=== PATIENT | male | born 1985 | race Caucasian/White ===

== ENCOUNTER 2020-06-23 07:39 | Outpatient (REF) | payer MEDICAID, SELFPAY | END 2020-06-23 07:40 | disposition home or self-care (01) | LOC: HO.LAB 07:39 | PROVIDERS: Visit Provider Internal Medicine | DX: Z20.822 Contact with and (suspected) exposure to COVID-19 (principal) | CPT/HCPCS: 36415; C9803; U0003; U0005 ==

== ENCOUNTER 2020-08-09 07:43 | Outpatient (REF) | payer MEDICAID, SELFPAY | END 2020-08-09 07:44 | disposition home or self-care (01) | LOC: HO.LAB 07:43 | PROVIDERS: Visit Provider Internal Medicine | DX: Z20.822 Contact with and (suspected) exposure to COVID-19 (principal) | CPT/HCPCS: C9803; U0003; U0005 ==

== ENCOUNTER 2020-08-14 14:10 | Emergency (ER) | payer MEDICAID, SELFPAY ==
[2020-08-14 14:17] VITALS: BP 140/84; PULSE 111; RESP 18; TEMP 36.8; O2SAT 98; BMI 31.3
[2020-08-14 16:28] LABS: IDNOW Serial# 08D9AD1C
[2020-08-14 16:29] LABS: COVID-19 Test Negative (Negative)
[2020-08-14 17:14] VITALS: PULSE 72; O2SAT 97
--- NOTE | 2020-08-14 17:16 | ED.GENADULT ---
HPI - General Adult General Chief complaint: Upper Respiratory Symptoms Stated complaint: flu like Time Seen by Provider: 08/14/20 16:00 Source: patient Mode of arrival: ambulatory Limitations: no limitations History of Present Illness HPI narrative: Patient presents to ED for nasal congestion, body aches, and slight headache for couple of days. Patient states his son recently tested positive for COVID-19. Patient denies any coughing, chest pain, shortness of breath, photophobia, neck stiffness, fever, or chills. Related Data Allergies Allergy/AdvReac Type Severity Reaction Status Date / Time No Known Allergies Allergy Unverified 12/31/19 18:57 [No Known Allergies*] Review of Systems Review of Systems: Yes all other systems are reviewed and are negative Constitutional: Constitutional: Reports as per HPI, Reports no additional constitutional complaints, Reports body ache(s) and Reports headache(s) (Slight) Eyes: Eyes: Reports as per HPI and Reports no additional eye complaints ENT: Reports system reviewed and no additional complaints, except as documented, Reports as per HPI, Reports headache(s) (Slight) and Reports nasal congestion Cardiovascular: Cardiovascular: Reports as per HPI and Reports no additional cardiovascular complaints Respiratory: Respiratory: Reports as per HPI and Reports no additional respiratory complaints Gastrointestinal: Gastrointestinal: Reports as per HPI and Reports no additional gastrointestinal complaints Genitourinary: Genitourinary: Reports no additional male genitourinary complaints and Reports as per HPI Musculoskeletal: Musculoskeletal: Reports no additional musculoskeletal complaints and Reports as per HPI Neurologic: Reports system reviewed and no additional complaints, except as documented, Reports as per HPI and Reports headache(s) (Slight) Psychiatric: Psychiatric: Reports no additional psychiatric complaints and Reports as per HPI REPLACED BY [facility] Social History Social History Advance Directives: No Advance Directives Information Provided: No Physical Exam Vital Signs: Vital Signs: Last Vital Signs Temp 98.2 F 08/14/20 14:17 Pulse 72 08/14/20 17:14 Resp 18 08/14/20 14:17 BP 140/84 H 08/14/20 14:17 Pulse Ox 97 08/14/20 17:14 Body Mass Index 31.3 Const: General: cooperative, healthy appearing, comfortable, no acute distress, well developed, alert, awake and Physically active Orientation/consciousness: patient oriented x3 HENMT: Head: Yes normal to inspection and Yes No palpable skull fracture present Eyes: General: appearance normal, both eyes and all related structures Neck: Neck: Yes normal visual inspection, Yes full ROM, Yes no lymphadenopathy, Yes no meningeal signs, Yes trachea midline, Yes supple and No tender Chest: Chest palpation & inspection: normal inspection of the chest and normal palpation of entire chest wall Resp: Effort & Inspection: normal respiratory effort and able to speak in complete sentences Auscultation: clear to auscultation bilaterally Cardio: Jugular venous distension: no JVD Heart sounds: S1 normal heart sound present and S2 normal heart sound present GI: Inspection: Yes normal to inspection Palpation (GI): Soft to palpation, not firm, nontender, no guarding and not rigid : General: No CVA tenderness and Yes no CVA tenderness Back/Spine/Pelvis: Back: no CVA tenderness, No CVA tenderness and No back tenderness Skin: General skin exam: no rashes or lesions noted and elasticity normal Neuro: General: patient oriented x3, no meningeal signs and CN's II-XI intact bilaterally Cranial nerves: Yes CN's II-XII intact bilaterally Extrem: General: Yes normal to inspection and Yes full ROM Psych: Appearance: grossly normal, well kempt and not disheveled Course Course Course Narrative: Will have SARS COVID vaccine sent. History physical exam indicate viral syndrome. No labs or other medical intervention indicated. Reevaluation(s) Reevaluation #1: Rapid COVID swab negative. SARs COVID results still pending. Patient informed if his COVID swab comes back negative that does not mean he does not have COVID-19 virus. Patient informed of false negatives. Patient states if he still having symptoms or worsen he should assume is COVID positive and quarantine or have repeat COVID testing 72 hours. Reevaluation #2: Patient's COVID swab came back negative and he was called and informed of this information. Patient told if he continues to have symptoms or they worsen due to his son being positive he should self quarantine or get repeat testing and 72 hours. Medical Decision Making MDM Narrative Medical decision making narrative: Viral syndrome Lab Data Labs: Lab Results 08/14/20 08/14/20 Range/Units 16:06 16:44 Coronavirus (PCR) NEGATIVE (Negative) COVID-19 ([facility]) Negative (Negative) COVID-19 Clin Com See Note Influenza Type A (PCR) NEGATIVE (Negative) Influenza Type B (PCR) NEGATIVE (Negative) RSV RNA Qual (PCR) NEGATIVE (Negative) Discharge Plan Discharge Clinical Impression: Acute viral syndrome Patient Disposition: Home, Self-Care Instructions: Viral Syndrome (ED) Additional Instructions: Return to the ED immediately for worsening headache, fever, neck stiffness, coughing up blood, chest pain, fever, chills, weakness, leg swelling, calf pain, any other concerning symptoms. History COVID saw come back negative for any still having symptoms or they worsen recommend repeat testing in 72 hours or self quarantine. Stand Alone Forms: Work/School Release Interventions: ED Discharge Assessment Last Done: 08/14/20 17:34 Discharge Date/Time: 08/14/20 17:35 Print Language: Lithuanian
[2020-08-14 18:38] LABS: Influenza A PCR NEGATIVE (Negative); Influenza B PCR NEGATIVE (Negative); Resp Syncy Virus RNA Qual PCR NEGATIVE (Negative); SARS COV2 PCR INHOUSE NEGATIVE (Negative)
== END 2020-08-14 17:35 | disposition home or self-care (01) ==
PROVIDERS: Physician Assistant; Emergency Provider Emergency Medicine
DX: B34.9 Viral infection, unspecified (principal); Z20.822 Contact with and (suspected) exposure to COVID-19
CPT/HCPCS: 0241U; 36415; 87635; 99283

== ENCOUNTER 2020-08-17 18:39 | Emergency (ER) | payer MEDICAID, SELFPAY ==
[2020-08-17 19:19] VITALS: BP 121/64; PULSE 65; RESP 18; TEMP 36.8; O2SAT 98; BMI 32.3
== END 2020-08-17 21:59 | disposition left against medical advice (07) ==
PROVIDERS: Emergency Provider Emergency Medicine
DX: G47.00 Insomnia, unspecified (principal); R41.3 Other amnesia
CPT/HCPCS: 99281; 99282

== ENCOUNTER 2020-09-18 18:09 | Emergency (ER) | payer MEDICAID, SELFPAY ==
[2020-09-18 19:34] VITALS: BP 148/79; PULSE 77; RESP 16; TEMP 36.8; O2SAT 97; BMI 28.8
== END 2020-09-18 21:25 | disposition left against medical advice (07) ==
PROVIDERS: Emergency Provider Emergency Medicine
DX: F19.10 Other psychoactive substance abuse, uncomplicated (principal)
CPT/HCPCS: 99281; 99282

== ENCOUNTER 2020-09-20 18:02 | Emergency (ER) | payer MEDICAID, SELFPAY ==
[2020-09-20 18:25] VITALS: BP 132/72; PULSE 87; RESP 18; TEMP 36.9; O2SAT 98; BMI 26.6
[2020-09-20 18:57] LABS: IDNOW Serial# 08D9AD1C
[2020-09-20 18:58] LABS: COVID-19 Test Negative (Negative)
--- NOTE | 2020-09-20 19:40 | ED_ITS ---
HPI - URI/Sore Throat General Chief Complaint: Upper Respiratory Symptoms Stated Complaint: COVID SYMPTOMS Time Seen by Provider: 09/20/20 19:40 Source: patient Mode of arrival: ambulatory Limitations: no limitations History of Present Illness HPI Narrative: 35-year-old male previously healthy here with complaints of runny nose, cough and headache for the last 24 hours. Patient tells me he was notified that he was exposed to COVID at work and was here for a test. No shortness of breath or chest pain Related Data Allergies Allergy/AdvReac Type Severity Reaction Status Date / Time No Known Allergies Allergy Verified 09/18/20 19:41 [No Known Allergies*] Review of Systems Review of Systems: Yes all other systems are reviewed and are negative Constitutional: Constitutional: Reports no additional constitutional complaints, Denies body ache(s), Denies chills, Denies fever(s), Reports headache(s) and Denies weakness Eyes: Eyes: Reports no additional eye complaints and Denies change in vision ENT: Reports system reviewed and no additional complaints, except as documented, Denies dizziness, Reports headache(s), Denies nasal congestion, Reports nasal discharge and Denies neck pain Cardiovascular: Cardiovascular: Reports no additional cardiovascular complaints, Denies chest pain, Denies leg edema and Denies dyspnea Respiratory: Respiratory: Reports no additional respiratory complaints, Reports cough and Denies dyspnea Gastrointestinal: Gastrointestinal: Reports no additional gastrointestinal complaints, Denies abdominal pain, Denies diarrhea, Denies nausea and Denies vomiting Genitourinary: Genitourinary: Denies urinary incontinence Musculoskeletal: Musculoskeletal: Reports no additional musculoskeletal complaints, Denies back pain, Denies arthralgias, Denies joint swelling, Denies neck pain, Denies numbness and Denies tingling Integumentary/Breasts: Skin/Breast: Reports system reviewed and no additional complaints, except as docu and Denies rash Neurologic: Denies Abnormal speech present, Denies dizziness, Reports headache(s), Denies numbness, Denies tingling and Denies weakness PMFSH Past Medical History Attestation statement: The following information was validated with the patient. Source: old records reviewed and nursing notes reviewed Medical History No known health problems Social History Social History Advance Directives: No Advance Directives Information Provided: Yes Physical Exam Vital Signs: Vital Signs: Last Vital Signs Temp 98.4 F 09/20/20 18:25 Pulse 87 09/20/20 18:25 Resp 18 09/20/20 18:25 BP 132/72 09/20/20 18:25 Pulse Ox 98 09/20/20 18:25 Body Mass Index 26.6 Const: General: cooperative, healthy appearing, comfortable and no acute distress Orientation/consciousness: patient oriented x3 Limitations: no limitations HENMT: Head: Yes normal to inspection Ears: hearing grossly normal bilaterally General nose exam: Normal external nose present Face and sinus: Yes normal facial exam Mouth: Normal oral and palatal mucosa present Throat: Yes posterior oropharynx normal Eyes: General: appearance normal, both eyes and all related structures Pupils: Equal, round and reactive pupils present Neck: Neck: Yes normal visual inspection Chest: Chest palpation & inspection: normal inspection of the chest Resp: Effort & Inspection: normal respiratory effort Auscultation: clear to auscultation bilaterally Cardio: Rate: regular rate Rhythm: regular rhythm Peripheral pulses: Peripheral pulses 2+ throughout GI: Inspection: Yes normal to inspection Palpation (GI): Soft to palpation and nontender Auscultation: normal bowel sounds Back/Spine/Pelvis: Thoracic/Lumbar Spine: thoracic and lumbar spine normal to inspection Skin: General skin exam: no rashes or lesions noted Neuro: General: patient oriented x3, no focal motor deficits and normal sensation to monofilament Cranial nerves: Yes Equal, round and reactive pupils present Cognition (Neuro): normal cognition Speech: No Abnormal speech present Gait exam (Neuro): Normal gait present Motor exam (neuro): 5/5 motor strength present throughout Extrem: General: Yes normal to inspection Course Course Course Narrative: 35-year-old male here with URI symptoms times 24 hours. Apparent COVID exposure at work. Will send COVID screen -COVID screen negative. Likely viral however due to onset of symptoms and testing window I did recommend the patient get retested in several days for persistent symptoms. Reviewed worrisome signs and symptoms and when to return to the emergency department. Comfortable discharge home. MDM - URI/Sore Throat Medical Records Attestation: I reviewed the patient's medical records. Lab Data Attestation: I reviewed the patient's lab results. Labs: Lab Results 09/20/20 Range/Units 18:36 COVID-19 ([facility]) Negative (Negative) COVID-19 Clin Com See Note Discharge Plan Discharge Clinical Impression: Upper respiratory infection Patient Disposition: Home, Self-Care Instructions: Upper Respiratory Infection (ED) Additional Instructions: Your test today was negative for COVID You need to retest in several days if you continue to have symptoms Referrals: Physician,None [Primary Care Provider] - 2 days Interventions: ED Discharge Assessment Last Done: 09/20/20 20:07 Discharge Date/Time: 09/20/20 20:08 Print Language: Frisian
== END 2020-09-20 20:08 | disposition home or self-care (01) ==
PROVIDERS: Emergency Provider Internal Medicine
DX: J06.9 Acute upper respiratory infection, unspecified (principal); Z20.822 Contact with and (suspected) exposure to COVID-19
CPT/HCPCS: 36415; 87635; 99283; 99284

== ENCOUNTER 2020-12-20 11:46 | Emergency (ER) | payer MEDICAID, SELFPAY ==
[2020-12-20 12:38] VITALS: BP 131/72; PULSE 92; RESP 16; TEMP 36.6; O2SAT 99; BMI 28.1
[2020-12-20 13:42] LABS: Influenza A PCR NEGATIVE (Negative); Influenza B PCR NEGATIVE (Negative); Resp Syncy Virus RNA Qual PCR NEGATIVE (Negative); SARS COV2 PCR INHOUSE NEGATIVE (Negative)
--- NOTE | 2020-12-20 14:13 | PC.NURSE ---
PROVIDER SWABBED PT FOR STREP, COLLECTED AND SENT.
[2020-12-20 14:23] LABS: Strep A Nucleic Acid Negative (Negative)
--- NOTE | 2020-12-20 14:37 | ED.GENADULT ---
HPI - General Adult General Chief complaint: General Medical Stated complaint: headache, sore throat Time Seen by Provider: 12/20/20 14:02 Source: patient Mode of arrival: ambulatory Limitations: no limitations History of Present Illness HPI narrative: Patient presents to ED for sore throats, sinus pressure, and headache. Patient states no fever, chills, coughing, chest pain, shortness of breath, nausea, or vomiting. Patient is not vaccinated against the COVID-19 virus. Related Data Allergies Allergy/AdvReac Type Severity Reaction Status Date / Time No Known Allergies Allergy Verified 09/18/20 19:41 [No Known Allergies*] Review of Systems Constitutional: Constitutional: Reports as per HPI, Reports no additional constitutional complaints and Reports headache(s) Eyes: Eyes: Reports as per HPI and Reports no additional eye complaints ENT: Reports system reviewed and no additional complaints, except as documented, Reports as per HPI, Reports headache(s) and Reports sore throat Comments: Sinus pressure Cardiovascular: Cardiovascular: Reports as per HPI and Reports no additional cardiovascular complaints Respiratory: Respiratory: Reports as per HPI and Reports no additional respiratory complaints Gastrointestinal: Gastrointestinal: Reports as per HPI and Reports no additional gastrointestinal complaints Genitourinary: Genitourinary: Reports no additional male genitourinary complaints and Reports as per HPI Musculoskeletal: Musculoskeletal: Reports no additional musculoskeletal complaints and Reports as per HPI Neurologic: Reports system reviewed and no additional complaints, except as documented, Reports as per HPI and Reports headache(s) Psychiatric: Psychiatric: Reports no additional psychiatric complaints and Reports as per HPI PMFSH Past Medical History Medical History No known health problems Social History Social History Advance Directives: No Advance Directives Information Provided: No Physical Exam Vital Signs: Vital Signs: Last Vital Signs Temp 97.8 F 12/20/20 12:38 Pulse 92 12/20/20 12:38 Resp 16 12/20/20 12:38 BP 131/72 12/20/20 12:38 Pulse Ox 99 12/20/20 12:38 Body Mass Index 28.1 Const: General: cooperative, healthy appearing, comfortable, no acute distress, well developed, alert and awake Orientation/consciousness: patient oriented x3 HENMT: Head: Yes normal to inspection, Yes No palpable skull fracture present, Yes normocephalic, Yes atraumatic and No abrasion Ears: hearing grossly normal bilaterally, external ears normal, TM's normal bilaterally and EAC's normal General nose exam: Normal external nose present and Normal nares present Face and sinus: Yes normal facial exam and Yes sinuses nontender Eyes: General: appearance normal, both eyes and all related structures Neck: Neck: Yes normal visual inspection, Yes full ROM, Yes no lymphadenopathy, Yes no meningeal signs, Yes trachea midline, Yes supple and No tender Chest: Chest palpation & inspection: normal inspection of the chest and normal palpation of entire chest wall Resp: Effort & Inspection: normal respiratory effort and able to speak in complete sentences Auscultation: clear to auscultation bilaterally Cardio: Jugular venous distension: no JVD Heart sounds: S1 normal heart sound present and S2 normal heart sound present GI: Inspection: Yes normal to inspection and No abdominal wall ecchymosis Palpation (GI): Soft to palpation, not firm, nontender, no guarding and not rigid : General: No CVA tenderness and Yes no CVA tenderness Back/Spine/Pelvis: Back: no CVA tenderness, No CVA tenderness and No back tenderness Skin: General skin exam: no rashes or lesions noted and elasticity normal Neuro: General: patient oriented x3, gait normal, no meningeal signs and CN's II-XI intact bilaterally Cranial nerves: Yes CN's II-XII intact bilaterally Extrem: General: Yes normal to inspection and Yes full ROM Psych: Appearance: grossly normal, well kempt and not disheveled Course Course Course Narrative: COVID swab and strep ordered. Reevaluation(s) Reevaluation #1: Patient's COVID swab negative. Patient's strep test came back negative. Patient to be discharged. Patient vital signs stable Time: 14:47 Medical Decision Making [facility] Narrative Medical decision making narrative: Viral Syndrome Lab Data Labs: Lab Results 12/20/20 12/20/20 Range/Units 12:54 14:09 Coronavirus (PCR) NEGATIVE (Negative) Influenza Type A (PCR) NEGATIVE (Negative) Influenza Type B (PCR) NEGATIVE (Negative) RSV RNA Qual (PCR) NEGATIVE (Negative) S. pyogenes GrpA [place] Negative (Negative) Discharge Plan Discharge Clinical Impression: Pharyngitis with viral syndrome Patient Disposition: Home, Self-Care Instructions: Pharyngitis (ED), Viral Syndrome (ED) Additional Instructions: Your COVID swab and strep test came back negative. Return to the ED for any chest pain, shortness of breath, headache, dizziness, fever, chills, inability tolerate solid food/liquid, severe pain, abdominal pain, dysuria, hematuria, or any other concerning symptoms. You can take [id number] Motrin/Tylenol for pain. Please follow up your PCP. Stand Alone Forms: Work/School Release Interventions: ED Discharge Assessment Last Done: 12/20/20 15:19 Discharge Date/Time: 12/20/20 15:20 Print Language: Persian
== END 2020-12-20 15:20 | disposition home or self-care (01) ==
PROVIDERS: Physician Assistant; Emergency Provider Emergency Medicine
DX: B34.9 Viral infection, unspecified (principal); Z20.822 Contact with and (suspected) exposure to COVID-19; J02.9 Acute pharyngitis, unspecified; R51.9 Headache, unspecified
CPT/HCPCS: 0241U; 36415; 87651; 99283

== ENCOUNTER 2021-02-27 15:33 | Emergency (ER) | payer MEDICAID, SELFPAY ==
--- NOTE | ~2021-02-27 | XR_ITS ---
EXAMINATION: XR CHEST CLINICAL INFORMATION: Cough. COMPARISON: Chest radiograph dated from 03/25/2018. TECHNIQUE: 2 views of the chest were obtained. FINDINGS: No significant abnormality is noted involving the heart, lungs, mediastinum, bony thorax or soft tissues. XR/XR chest 2V IMPRESSION: No acute cardiopulmonary findings.
--- NOTE | 2021-02-27 16:36 | PC.NURSE ---
charge nurse notified of patient/history
[2021-02-27 16:41] VITALS: BP 115/62; PULSE 67; RESP 18; TEMP 37.3; O2SAT 96; BMI 27.4
--- NOTE | 2021-02-27 18:19 | ED.URI ---
HPI - URI/Sore Throat General Chief Complaint: Upper Respiratory Symptoms Stated Complaint: headache congestion Time Seen by Provider: 02/27/21 18:05 Source: patient Mode of arrival: ambulatory Limitations: language barrier (Albanian-speaking) History of Present Illness HPI Narrative: 36-year-old Albanian-speaking male presenting to the ED with URI complaints which include intermittent headaches, nasal congestion/rhinorrhea, sore throat and a dry cough for the past 2 days worse today. Reports that his is a [employer] and has similar symptoms although she has not been evaluated or tested for COVID. He denies any measured fevers, dizziness, neck pain/stiffness, eye drainage, ear pain, neck pain/stiffness, trouble swallowing or breathing, shortness of breath, sputum production, chest pain, rashes, nausea/vomiting/diarrhea, abdominal pain, back pain, dysuria, recent travel or any other symptoms complaints or concerns at this time. MD elicited complaint: cough, sore throat, rhinorrhea and nasal congestion Onset (ago): day(s) (Two days worse today) Consistency: constant and progressively worsening Severity: moderate Description of mucous: clear and watery Able to tolerate fluids by mouth: Yes Exacerbating factors: swallowing Relieving factors: nothing Context: sick contacts (Significant other with similar symptoms and she is a [employer] worker although has not been tested for COVID) Associated symptoms: chills, myalgias, headache, rhinorrhea, nasal congestion, sore throat and cough Treatments prior to arrival: none Related Data Previous Rx's Medication Instructions Recorded acetaminophen 500 mg tablet 1,000 mg PO QID PRN #14 tab 02/27/21 (Tylenol Extra Strength) azithromycin 250 mg tablet See Rx Instructions .ROUTE 02/27/21 .COMPLEX #6 tab ibuprofen 800 mg tablet 800 mg PO Q8H PRN #14 tab 02/27/21 Allergies Allergy/AdvReac Type Severity Reaction Status Date / Time No Known Allergies Allergy Verified 02/27/21 16:41 [No Known Allergies*] Review of Systems Review of Systems: Constitutional : Positive chills, No Weight loss, No Fever, No Night Sweats, No Fatigue, No Malaise ENT/Mouth : Positive sore throat/nasal congestion/rhinorrhea, No Hearing loss, No Ear Pain, No Sinus Pain, No Hoarseness, No Swallowing Difficulty Eyes: No Eye Pain, No Swelling, No Redness, No Foreign Body, No Discharge, No Vision Changes Cardiovascular : No Chest Pain, No SOB, No Dyspnea on Exertion, No Orthopnea, No Edema, No Palpitations Respiratory : Positive Cough, No Sputum, No Wheezing, No Smoke Exposure, No Dyspnea Gastrointestinal : No Nausea, No Vomiting, No Diarrhea, No Constipation, No abdominal Pain, No Hematochezia, No Melena Genitourinary : no irregular bleeding, No Dysuria, No Urinary Frequency, No Hematuria, No Urinary Incontinence, No Urgency, No Flank Pain, No Urinary Flow Changes, No Hesitancy Musculoskeletal : No joint pain, No Myalgias, No Joint Swelling Skin : No Skin Lesions, No rash Neuro : No Weakness, No Numbness, No Paresthesias, No Loss of Consciousness, No Dizziness, positive intermittent Headache Psych : No Anxiety/Panic, No Depression, No SI/HI/AH/VH, No Social Issues, Heme/Lymph: No Bruising, No Bleeding,No Lymphadenopathy Endocrine : No Polyuria, No Polydipsia, No Temperature Intolerance Yes all other systems are reviewed and are negative [facility] Past Medical History Attestation statement: The following information was validated with the patient. Medical History Asthma Social History Social History Advance Directives: No Advance Directives Information Provided: No Physical Exam Vital Signs: Vital Signs: Last Vital Signs Temp 99.1 F 02/27/21 16:41 Pulse 67 02/27/21 16:41 Resp 18 02/27/21 16:41 BP 115/62 02/27/21 16:41 Pulse Ox 96 02/27/21 16:41 Body Mass Index 27.4 vital signs have been reviewed as normal and appeared to be correct. Blood pressure normal. Heart rate normal. Respiration rate normal. Temperature normal. Oxygen saturation normal. Appearance: Alert. Oriented X3. No acute distress. Head: Normal external exam. Normocephalic. Atraumatic. Eyes: PERRLA. EOMI. Conjunctiva and sclera normal. Eyelids normal. ENT: EAC normal. TM's Normal. Posterior pharynx mildly erythematous. Uvula midline. Moist mucous membranes. No trismus noted. No drooling noted. No muffled voice noted. Neck: Normal inspection. Neck supple. FROM. No adenopathy. Thyroid Normal. No meningeal signs. No neck mass noted. CVS: Normal heart rate and rhythm. Heart sound normal. Pulses normal throughout. No murmurs/rales/gallops. Respiratory: No respiratory distress. Painless inspiration. Breath sounds normal. No wheezes/rales/rhonchi noted. Chest nontender. No accessory muscle usage noted or decreased air movement noted. Back: Full range of motion noted. No rashes/lesion/induration/fluctuance or signs of infection noted. Skin: Skin warm and dry. Normal skin color. Normal skin turgor. No rashes/lesions/lacerations noted. Extremities: Extremities exhibit normal range of motion. Extremities nontender. Neuro: Oriented X 3. No motor deficit. No sensory deficit. Reflexes normal. Normal steady gait. No focal neuro deficits noted. Vascular: + radial pulses/+ 2 distal pedal pulses/+2 dorsalis pedis b/l. Normal cap refill. No cyanosis noted to upper extremity nails and lower extremity toes nails. Course Course Course Narrative: - 36-year-old Albanian-speaking male presenting to the ED with URI complaints which include intermittent headaches, nasal congestion/rhinorrhea, sore throat and a dry cough for the past 2 days worse today. Reports that his is a [employer] and has similar symptoms although she has not been evaluated or tested for COVID. Will obtain a chest x-ray, rapid strep, COVID swab if negative will DC home with symptomatic treatment instructions to self isolate and to return if any new or worsening symptoms to follow up with primary care provider. Patient understands agrees with this plan. MDM - URI/Sore Throat Medical Records Attestation: I reviewed the patient's medical records. Lab Data Attestation: I reviewed the patient's lab results. Labs: Lab Results 02/27/21 02/27/21 Range/Units 18:40 18:40 COVID-19 ([facility]) Negative (Negative) COVID-19 Clin Com See Note S. pyogenes GrpA [place] Negative (Negative) Imaging Data Chest x-ray: Attestation: I personally reviewed and interpreted this imaging study as follows: Radiologist's impression: FINDINGS: No significant abnormality is noted involving the heart, lungs, mediastinum, bony thorax or soft tissues. XR/XR chest 2V IMPRESSION: No acute cardiopulmonary findings. Discharge Plan Discharge Clinical Impression: Upper respiratory infection Patient Disposition: Home, Self-Care Instructions: Upper Respiratory Infection (ED) Additional Instructions: You were negative for COVID and rapid strep and a chest x-ray was negative. Return if any new or worsening symptoms. Follow up with her primary care provider. Prescriptions: New azithromycin 250 mg tablet See Rx Instructions .ROUTE .COMPLEX Qty: 6 RF: 0 ibuprofen 800 mg tablet 800 mg PO Q8H PRN (Reason: pain) Qty: 14 RF: 0 acetaminophen [Tylenol Extra Strength] 500 mg tablet 1,000 mg PO QID PRN (Reason: fever or pain) Qty: 14 RF: 0 Referrals: [facility] [Primary Care Provider] - 2 days Stand Alone Forms: Work/School Release Print Language: Indonesian
[2021-02-27 18:56] LABS: IDNOW Serial# 08D9AD1C; Strep A Nucleic Acid Negative (Negative)
[2021-02-27 19:02] LABS: COVID-19 Test Negative (Negative); IDNOW Serial# 9DD0AD1C
== END 2021-02-27 19:26 | disposition home or self-care (01) ==
PROVIDERS: Physician Assistant Medical; Emergency Provider Emergency Medicine
DX: J06.9 Acute upper respiratory infection, unspecified (principal); J45.909 Unspecified asthma, uncomplicated; Z20.822 Contact with and (suspected) exposure to COVID-19
CPT/HCPCS: 36415; 71046; 87635; 87651; 99283

== ENCOUNTER 2021-05-29 09:23 | Emergency (ER) | payer MEDICAID, SELFPAY ==
--- NOTE | ~2021-05-29 | XR_ITS ---
EXAMINATION: XR HAND, LEFT CLINICAL INFORMATION: Laceration from glass COMPARISON: Previous x-ray September 2015 TECHNIQUE: PA, lateral, and oblique views of the left hand. FINDINGS: There is an old healed fifth metacarpal fracture. No acute fracture or dislocation is seen. Joint spaces are normal. There is a dressing overlying the fifth finger. No soft tissue foreign body is seen. XR/XR hand LT 2V IMPRESSION: No soft tissue foreign body seen.
[2021-05-29 09:44] VITALS: BP 138/82; PULSE 109; RESP 18; TEMP 36.9; O2SAT 100; BMI 29.0
[2021-05-29] MEDS: Lidocaine HCl 2 % MPF 5 ML VIAL SUBCUT ×2 (10:26)
[2021-05-29] MEDS: Diphth,Pertus(ACell),Tet Adult 0.5 ML SYRINGE IM (10:26)
[2021-05-29] MEDS: Ketorolac Tromethamine 60 MG/2 ML VIAL IM (10:27)
--- NOTE | 2021-05-29 10:27 | ED.WOUNDLAC ---
HPI - Wound/Laceration General Chief Complaint: Wound/Laceration Stated Complaint: hand laceration Time Seen by Provider: 05/29/21 10:10 Source: patient and practicing dermatologist Mode of arrival: ambulatory Limitations: language barrier History of Present Illness HPI narrative: 36-year-old male with a history of asthma here with reports of lacerations the left hand after punching a glass door this morning. Patient tells me that lasted brake. He is unclear if there is any foreign bodies in the lacerations. His tetanus status is unknown. He denies any numbness, tingling, weakness of the extremity. Patient is left-hand dominant Related Data Previous Rx's Medication Instructions Recorded acetaminophen 500 mg tablet 1,000 mg PO QID PRN #14 tab 02/27/21 (Tylenol Extra Strength) azithromycin 250 mg tablet See Rx Instructions .ROUTE 02/27/21 .COMPLEX #6 tab ibuprofen 800 mg tablet 800 mg PO Q8H PRN #14 tab 02/27/21 amoxicillin 875 mg-potassium 1 tab PO BID #14 tab 05/29/21 clavulanate 125 mg tablet ibuprofen 600 mg tablet 600 mg PO Q8H PRN #20 tab 05/29/21 oxycodone 5 mg tablet 5 mg PO Q8H PRN #8 tab 05/29/21 Allergies Allergy/AdvReac Type Severity Reaction Status Date / Time No Known Allergies Allergy Verified 02/27/21 16:41 [No Known Allergies*] Review of Systems Review of Systems: Yes all other systems are reviewed and are negative Constitutional: Constitutional: Reports no additional constitutional complaints, Denies body ache(s), Denies chills, Denies fever(s), Denies headache(s) and Denies weakness Eyes: Eyes: Reports no additional eye complaints and Denies change in vision ENT: Reports system reviewed and no additional complaints, except as documented, Denies dizziness, Denies headache(s), Denies nasal congestion, Denies nasal discharge and Denies neck pain Cardiovascular: Cardiovascular: Reports no additional cardiovascular complaints, Denies chest pain, Denies leg edema and Denies dyspnea Respiratory: Respiratory: Reports no additional respiratory complaints, Denies cough and Denies dyspnea Gastrointestinal: Gastrointestinal: Reports no additional gastrointestinal complaints, Denies abdominal pain, Denies diarrhea, Denies nausea and Denies vomiting Genitourinary: Genitourinary: Denies urinary incontinence Musculoskeletal: Musculoskeletal: Reports no additional musculoskeletal complaints, Denies back pain, Denies arthralgias, Denies joint swelling, Denies neck pain, Denies numbness and Denies tingling Integumentary/Breasts: Skin/Breast: Reports system reviewed and no additional complaints, except as docu and Denies rash Comments: +lac Neurologic: Reports system reviewed and no additional complaints, except as documented, Denies Abnormal speech present, Denies dizziness, Denies headache(s), Denies numbness, Denies tingling and Denies weakness [facility] Past Medical History Attestation statement: The following information was validated with the patient. Source: old records reviewed and nursing notes reviewed Medical History Asthma Social History Social History Advance Directives: No Advance Directives Information Provided: No Physical Exam Vital Signs: Vital Signs: Last Vital Signs Temp 98.5 F 05/29/21 09:44 Pulse 109 H 05/29/21 09:44 Resp 18 05/29/21 09:44 BP 138/82 05/29/21 09:44 Pulse Ox 100 05/29/21 09:44 BMI result Body Mass Index 29.0 Const: General: cooperative, healthy appearing, comfortable and no acute distress Orientation/consciousness: patient oriented x3 Limitations: no limitations HENMT: Head: Yes normal to inspection Ears: hearing grossly normal bilaterally General nose exam: Normal external nose present Face and sinus: Yes normal facial exam Mouth: Normal oral and palatal mucosa present Throat: Yes posterior oropharynx normal Eyes: General: appearance normal, both eyes and all related structures Pupils: Equal, round and reactive pupils present Neck: Neck: Yes normal visual inspection Chest: Chest palpation & inspection: normal inspection of the chest Resp: Effort & Inspection: normal respiratory effort Auscultation: clear to auscultation bilaterally Cardio: Rate: regular rate Rhythm: regular rhythm Peripheral pulses: Peripheral pulses 2+ throughout GI: Inspection: Yes normal to inspection Palpation (GI): Soft to palpation and nontender Auscultation: normal bowel sounds Back/Spine/Pelvis: Thoracic/Lumbar Spine: thoracic and lumbar spine normal to inspection Skin: General skin exam: no rashes or lesions noted Neuro: General: patient oriented x3, no focal motor deficits and normal sensation to monofilament Cranial nerves: Yes Equal, round and reactive pupils present Cognition (Neuro): normal cognition Speech: No Abnormal speech present Gait exam (Neuro): Normal gait present Motor exam (neuro): 5/5 motor strength present throughout Extrem: Other: There is full range of motion of the left hand. Patient has sensation intact throughout the entire hand. Normal cap refill in all 5 digits. General: Yes normal to inspection Hand/finger images: 1. 2 cm laceration 2. Avulsion of skin with soft tissue loss approximately 4 cm on the lateral aspect. This is not circumferential. Patient is able to flex and extend the digit with no difficulty. Neurovascularly intact distally to the injury. No exposed bone or tendon and deep structures are intact. 3. 4cm laceration 4. Skin avulsion approximately 2 cm 5. Abrasion 6. Abrasion 7. Abrasion Course Course Course Narrative: 36-year-old male left-hand dominant here with multiple lacerations and abrasions as well as a skin avulsion to the left 5th digit after punching a glass door just prior to arrival. See pictures for reference. Patient has extensive soft tissue loss of the left 5th digit but deeper structures are intact. He is neurovascularly intact distally to the extremity. X-ray shows no bony abnormality of the 5th digit. I discussed his case with orthopedics (Sunitha LANGLEY). They recommended local wound care as an unable to close the wounds due to soft tissue loss. The site was irrigated extensively with hydrogen peroxide and normal saline. Topical xeroform and nonstick dressing were applied. They will follow-up with him in 1 week to ensure skin healing. See procedure note for laceration repairs. Additional abrasions were cleansed with topical bacitracin applied. The larger skin avulsion over the MCP of the left thumb was closed with Steri-Strips. Tetanus was updated. Patient will be discharged on prophylactic antibiotics as well as analgesia with follow-up with Orthopedics. We discussed wound care at home. I reviewed worrisome signs and symptoms such as redness, drainage, foul odor, fever from the wound sites as well as any change in color or loss of sensation of the distal extremities that would be concerning for vascular change. This was communicated with the circuit tester. Comfortable plan for discharge home. MDM - Wound/Laceration Medical Records Attestation: I reviewed the patient's medical records. Lab Data Attestation: I reviewed the patient's lab results. Imaging Data left hand xray: Attestation: I personally reviewed and interpreted this imaging study as follows: Radiologist's impression: EXAMINATION: XR HAND, LEFT CLINICAL INFORMATION: Laceration from glass? COMPARISON: Previous x-ray September 2015? TECHNIQUE: PA, lateral, and oblique views of the left hand. FINDINGS: There is an old healed fifth metacarpal fracture. No acute fracture or dislocation is seen. Joint spaces are normal. There is a dressing overlying the fifth finger. No soft tissue foreign body is seen.? XR/XR hand LT 2V IMPRESSION: No soft tissue foreign body seen. Procedures Laceration Laceration 1: Site: hand (dorsal) Side (If applicable): left Size (cm): 2 Description: linear Depth: simple, single layer Local Anesthetic: lidocaine 2% Amount of anesthesia used (mL): 5 Pre-repair: wound explored, irrigated extensively and deep structures intact Skin layer closed with: vicryl Size (cm): 5-0 Number of sutures: 2 Technique: simple, interrupted Laceration 2: Site: hand (thenar) Side (If applicable): left Size (cm): 4 Description: linear Depth: simple, single layer Local Anesthetic: lidocaine 2% Amount of anesthesia used (mL): 5 Pre-repair: wound explored, irrigated extensively and deep structures intact Skin layer closed with: vicryl Size (cm): 5-0 Number of sutures: 4 Technique: simple, interrupted Discharge Plan Discharge Clinical Impression: Laceration, Avulsion of skin Patient Disposition: Home, Self-Care Instructions: Laceration (DC) Additional Instructions: Tiene 4 suturas en la base del pulgar y 2 suturas en la parte superior de la mano. Estos deben eliminarse en 7-10 d?as. Ma?love retirar todos los aderezos. L?vese las myranda con agua y jab?n diariamente. Tiene varias abrasiones eunice?as en las myranda a las que puede aplicar diane capa delgada de un antibi?malick. Sobre herrera liam dedo hay un trozo de vendaje amarillo que se llama xeroformo. Retire esto ma?love y aplique diane nueva pieza con vendaje sobre yannick. Mantenga chidi dedo cubierto en todo momento. Regrese por drenaje purulento, enrojecimiento, fiebre o si la punta del dedo est? roberto o stacey. Llame al cirujano de la mano para hacer un seguimiento con ellos y asegurarse de que todo est? sanando jose. Le quitar?n las suturas. Prescriptions: New amoxicillin-pot clavulanate 875-125 mg tablet 1 tab PO BID Qty: 14 0RF ibuprofen 600 mg tablet 600 mg PO Q8H PRN (Reason: pain) Qty: 20 0RF oxycodone 5 mg tablet 5 mg PO Q8H PRN (Reason: pain) Qty: 8 0RF No Action azithromycin 250 mg tablet See Rx Instructions .ROUTE .COMPLEX Qty: 6 0RF Rx Instructions: take 500 mg today (day 1), then 250 mg for 4 days (days 2-5) ibuprofen 800 mg tablet 800 mg PO Q8H PRN (Reason: pain) Qty: 14 0RF acetaminophen [Tylenol Extra Strength] 500 mg tablet 1,000 mg PO QID PRN (Reason: fever or pain) Qty: 14 0RF Referrals: Pancho Box MD [Physician] - 1 week Interventions: ED Discharge Assessment Last Done: 05/29/21 11:44 Discharge Date/Time: 05/29/21 11:44 Print Language: Citizen Of [place]
== END 2021-05-29 11:44 | disposition home or self-care (01) ==
PROVIDERS: Emergency Provider Emergency Medicine
DX: S61.412A Laceration without foreign body of left hand, initial encounter (principal); S61.207A Unspecified open wound of left little finger without damage to nail, initial encounter; W22.09XA Striking against other stationary object, initial encounter; Y93.89 Activity, other specified; Y92.019 Unspecified place in single-family (private) house as the place of occurrence of the external cause; Y99.9 Unspecified external cause status
CPT/HCPCS: 12042; 73120; 90471; 90715; 96372; 99283; 99284; J1885

== ENCOUNTER 2021-06-21 11:53 | Emergency (ER) | payer MEDICAID, SELFPAY ==
[2021-06-21 12:03] VITALS: BP 108/68; PULSE 66; RESP 19; TEMP 36.6; O2SAT 99; BMI 27.4
--- NOTE | 2021-06-21 12:24 | ED.GENADULT ---
HPI - General Adult General Chief complaint: Wound/Laceration Stated complaint: infection on left hand Time Seen by Provider: 06/21/21 12:13 Source: patient Mode of arrival: ambulatory History of Present Illness HPI narrative: 36-year-old male with a past medical history of asthma presenting to the ED reporting continued left hand wound pain s/p abrasion and laceration on 05/29/2021 after punching glass door. Patient was evaluated in our ED after incident had wounds were repaired, reports removed sutures on his own. States continued pain. Denies fever, chills, drainage from area, erythema, numbness/tingling. Reports compliance with previously prescribed antibiotics Onset (ago): week(s) Location: left and upper extremity Related Data Previous Rx's Medication Instructions Recorded acetaminophen 500 mg tablet 1,000 mg PO QID PRN #14 tab 02/27/21 (Tylenol Extra Strength) azithromycin 250 mg tablet See Rx Instructions .ROUTE 02/27/21 .COMPLEX #6 tab ibuprofen 800 mg tablet 800 mg PO Q8H PRN #14 tab 02/27/21 amoxicillin 875 mg-potassium 1 tab PO BID #14 tab 05/29/21 clavulanate 125 mg tablet ibuprofen 600 mg tablet 600 mg PO Q8H PRN #20 tab 05/29/21 oxycodone 5 mg tablet 5 mg PO Q8H PRN #8 tab 05/29/21 acetaminophen 500 mg tablet 500 mg PO Q6H PRN #20 tab 06/21/21 (Tylenol Extra Strength) bacitracin 500 unit/gram topical 1 appl TOPICAL BID #30 g 06/21/21 ointment naproxen 500 mg tablet 500 mg PO BID PRN 10 Days #20 tab 06/21/21 Allergies Allergy/AdvReac Type Severity Reaction Status Date / Time No Known Allergies Allergy Verified 02/27/21 16:41 [No Known Allergies*] Review of Systems Review of Systems: Constitutional: No Fever, No Chills ENT/Mouth: No Ear Pain, No Nasal Congestion, No sore throat, No Rhinorrhea, No Swallowing Difficulty Cardiovascular: No Chest Pain, No SOB Respiratory: No Cough, No Sputum, No Wheezing Gastrointestinal: No Nausea, No Vomiting, No Diarrhea, No Constipation, No Abdominal pain Genitourinary:, No Dysuria, No Urinary Incontinence, No Flank Pain Musculoskeletal: + joint pain, No Myalgias, No Joint Swelling Skin: +healing wounds, No rash Neuro: No Weakness, No Numbness, No Paresthesias Yes all other systems are reviewed and are negative Neurologic: Denies Sensory deficit (Neuro) [facility] Past Medical History Attestation statement: The following information was validated with the patient. Medical History Asthma Social History Social History Advance Directives: No Advance Directives Information Provided: No Physical Exam ED Vital Signs: Vital Signs - 24 hr 06/21/21 12:03 Temperature 98 F Pulse Rate 66 Respiratory Rate 19 Blood Pressure 108/68 Pulse Oximetry 99 BMI result Body Mass Index 27.4 Const General: cooperative, healthy appearing, no acute distress, alert and awake Orientation/consciousness: patient oriented x3 Limitations: no limitations HENMT Head: Yes normal to inspection and Yes atraumatic Ears: hearing grossly normal bilaterally General nose exam: Normal external nose present Face and sinus: Yes normal facial exam Eyes General: appearance normal, both eyes and all related structures EOM: EOMs intact bilaterally Neck Neck: Yes normal visual inspection and Yes no meningeal signs Resp Effort & Inspection: normal respiratory effort and no respiratory distress Cardio Rate: regular rate Peripheral pulses: radial pulses present and ulnar radial pulses present Skin Rashes: no rashes Neuro General: patient oriented x3, tone normal, moves all extremities and no meningeal signs Gait exam (Neuro): Normal gait present Sensory Exam: No Sensory deficit (Neuro) Extrem Other: Left hand with healing wound noted to thenar aspect and lateral aspect of 5th digit. Both the overlying scabbing, no erythema, no drainage, no streaking. Mildly tender to palpation. No fluctuance/induration. Finger to thumb opposition intact. An be intact. Sensation intact to light touch. Medical Decision Making MDM Narrative Medical decision making narrative: 36-year-old male with a past medical history of asthma presenting to the ED reporting continued left hand wound pain s/p abrasion and laceration on 05/29/2021 after punching glass door. On exam vital signs stable, NAD/nontoxic, physical exam as above consistent with healing wounds. No evidence of active infection, no appreciable abscess. Full range of motion intact. Discussed with patient needed close follow-up with orthopedics. He verbalized understanding feel safe for discharge home at this time Medical Records Medical records reviewed: Yes I reviewed the patient's medical records. Lab Data Lab results reviewed: Yes I reviewed the patient's lab results. Discharge Plan Discharge Clinical Impression: Visit for wound check Patient Disposition: Home, Self-Care Instructions: Acute Wounds (DC) Additional Instructions: You need to follow-up with orthopedics. Apply bacitracin to wounds. Take naproxen and Tylenol for pain. Take with food. If area begins look infected, is red, there is drainage you fever please return to the ED Necesita seguimiento con ortopedia. Aplica bacitracina a las heridas. [place] naproxeno y Tylenol para el dolor. Vani con la comida. Si el ?alan comienza a lucir infectada, est? massimo, hay drenaje, tiene fiebre, regrese al servicio de urgencias. Prescriptions: New bacitracin 500 unit/gram ointment 1 appl topical BID Qty: 30 0RF acetaminophen [Tylenol Extra Strength] 500 mg tablet 500 mg PO Q6H PRN (Reason: pain or fever) Qty: 20 0RF naproxen 500 mg tablet 500 mg PO BID PRN (Reason: pain) 10 Days Qty: 20 0RF No Action amoxicillin-pot clavulanate 875-125 mg tablet 1 tab PO BID Qty: 14 0RF ibuprofen 600 mg tablet 600 mg PO Q8H PRN (Reason: pain) Qty: 20 0RF oxycodone 5 mg tablet 5 mg PO Q8H PRN (Reason: pain) Qty: 8 0RF azithromycin 250 mg tablet See Rx Instructions .ROUTE .COMPLEX Qty: 6 0RF Rx Instructions: take 500 mg today (day 1), then 250 mg for 4 days (days 2-5) ibuprofen 800 mg tablet 800 mg PO Q8H PRN (Reason: pain) Qty: 14 0RF acetaminophen [Tylenol Extra Strength] 500 mg tablet 1,000 mg PO QID PRN (Reason: fever or pain) Qty: 14 0RF Referrals: Janay Riley MD [Physician] - 2 days Print Language: Citizen Of [place]
== END 2021-06-21 12:37 | disposition home or self-care (01) ==
PROVIDERS: Emergency Provider Emergency Medicine
DX: S60.512A Abrasion of left hand, initial encounter (principal); X58.XXXA Exposure to other specified factors, initial encounter; Y93.9 Activity, unspecified; Y92.9 Unspecified place or not applicable; Y99.9 Unspecified external cause status; Z48.00 Encounter for change or removal of nonsurgical wound dressing; Z79.899 Other long term (current) drug therapy
CPT/HCPCS: 99283

== ENCOUNTER 2021-11-12 15:37 | Emergency (ER) | payer MEDICAID, SELFPAY ==
--- NOTE | ~2021-11-12 | CT_ITS ---
EXAMINATION: NONCONTRAST HEAD CT NONCONTRAST CERVICAL SPINE CT INDICATION INFORMATION: Fall COMPARISON: None TECHNIQUE: Separate noncontrast CT examinations of the head and cervical spine were performed. Coronal and sagittal images were created for each examination at the technologist workstation. This CT examination was performed using dose optimization techniques as appropriate, variously including the following: *Automated exposure control *Adjustment of mA and/or kV according to patient size (this includes techniques or standardized protocols for targeted exams where dose is matched to indication/reason for exam; i.e. extremities or head) *Use of iterative reconstruction technique DLP: 1239 mGy-cm FINDINGS: HEAD: No intra or extra-axial fluid collection, hemorrhage, or mass. No ventriculomegaly. No midline shift or herniation. Basal cisterns are patent. Scales-white matter differentiation is maintained. No territorial encephalomalacia. 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 No significant volume loss. There is no abnormal attenuation within the brain parenchyma. No calvarial fracture or soft tissue abnormality. The mastoid air cells and visualized portions of the paranasal sinuses are well aerated. CERVICAL SPINE: Alignment: Normal. No subluxation. Vertebra: No acute fracture. No prevertebral soft tissue swelling. Degenerative disc disease: Preserved intervertebral disc heights. Minimal anterior endplate proliferative change at C5-C6. Other findings: No cervical lymphadenopathy. Visualized major salivary glands and thyroid gland are unremarkable. Visualized lung apices are clear. CT/CT cervical spine wo con IMPRESSION: 1. No intracranial hemorrhage or calvarial fracture. 2. No traumatic subluxation or acute cervical spine fracture.
--- NOTE | ~2021-11-12 | XR_ITS ---
EXAMINATION: XR CHEST CLINICAL INFORMATION: Shortness of breath COMPARISON: Chest x-ray 02/27/2021 TECHNIQUE: Frontal view of the chest was obtained. FINDINGS: The lungs are clear. No airspace consolidation, pleural effusion, or pneumothorax. The cardiomediastinal silhouette is within normal limits. No acute osseous injury. XR/XR chest 1V IMPRESSION: No acute pulmonary process.
--- NOTE | ~2021-11-12 | CT_ITS ---
EXAMINATION: CT CHEST, ABDOMEN, AND PELVIS WITHOUT CONTRAST CLINICAL INFORMATION: Weight loss. Fall. COMPARISON: None TECHNIQUE: Multidetector volumetric CT imaging of the chest, abdomen, and pelvis was obtained without oral or intravenous contrast. Axial MIP volume rendering provided. Sagittal and coronal reformatted images were obtained. This CT examination was performed using dose optimization techniques as appropriate, variously including the following: *Automated exposure control *Adjustment of mA and/or kV according to patient size (this includes techniques or standardized protocols for targeted exams where dose is matched to indication/reason for exam; i.e. extremities or head) *Use of iterative reconstruction technique DLP: 2079 mGy-cm FINDINGS: LUNGS: The lungs are clear with no evidence of inflammation or nodules. MEDIASTINUM: The mediastinum appears unremarkable. PLEURA: There is no pleural effusion. No pleural mass or thickening. AXILLA: No lymphadenopathy. LIVER, GALLBLADDER, AND BILIARY TREE: The liver appears unremarkable in size, shape, and attenuation. No focal hepatic lesion or biliary ductal dilatation is appreciated. Unremarkable appearance of the gallbladder. PANCREAS: Unremarkable SPLEEN: Unremarkable ADRENAL GLANDS: Unremarkable KIDNEYS AND URETERS: The kidneys appear unremarkable in size, shape, and attenuation. No hydronephrosis, hydroureter, or calculi seen. BLADDER: Unremarkable GASTROINTESTINAL TRACT: The small and large bowel appear unremarkable. ABDOMINAL WALL: No significant hernia is appreciated. LYMPH NODES: No evidence of adenopathy by size criteria. VASCULAR: Unremarkable. PELVIC VISCERA: Unremarkable OSSEOUS STRUCTURES: Unremarkable. CT/CT chest wo con IMPRESSION: Unremarkable CT scans of the chest, abdomen, and pelvis without oral or intravenous contrast.
--- NOTE | ~2021-11-12 | CT_ITS ---
EXAMINATION: NONCONTRAST HEAD CT NONCONTRAST CERVICAL SPINE CT INDICATION INFORMATION: Fall COMPARISON: None TECHNIQUE: Separate noncontrast CT examinations of the head and cervical spine were performed. Coronal and sagittal images were created for each examination at the technologist workstation. This CT examination was performed using dose optimization techniques as appropriate, variously including the following: *Automated exposure control *Adjustment of mA and/or kV according to patient size (this includes techniques or standardized protocols for targeted exams where dose is matched to indication/reason for exam; i.e. extremities or head) *Use of iterative reconstruction technique DLP: 1239 mGy-cm FINDINGS: HEAD: No intra or extra-axial fluid collection, hemorrhage, or mass. No ventriculomegaly. No midline shift or herniation. Basal cisterns are patent. Scales-white matter differentiation is maintained. No territorial encephalomalacia. 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 No significant volume loss. There is no abnormal attenuation within the brain parenchyma. No calvarial fracture or soft tissue abnormality. The mastoid air cells and visualized portions of the paranasal sinuses are well aerated. CERVICAL SPINE: Alignment: Normal. No subluxation. Vertebra: No acute fracture. No prevertebral soft tissue swelling. Degenerative disc disease: Preserved intervertebral disc heights. Minimal anterior endplate proliferative change at C5-C6. Other findings: No cervical lymphadenopathy. Visualized major salivary glands and thyroid gland are unremarkable. Visualized lung apices are clear. CT/CT head/brain wo con IMPRESSION: 1. No intracranial hemorrhage or calvarial fracture. 2. No traumatic subluxation or acute cervical spine fracture.
--- NOTE | ~2021-11-12 | CT_ITS ---
EXAMINATION: CT CHEST, ABDOMEN, AND PELVIS WITHOUT CONTRAST CLINICAL INFORMATION: Weight loss. Fall. COMPARISON: None TECHNIQUE: Multidetector volumetric CT imaging of the chest, abdomen, and pelvis was obtained without oral or intravenous contrast. Axial MIP volume rendering provided. Sagittal and coronal reformatted images were obtained. This CT examination was performed using dose optimization techniques as appropriate, variously including the following: *Automated exposure control *Adjustment of mA and/or kV according to patient size (this includes techniques or standardized protocols for targeted exams where dose is matched to indication/reason for exam; i.e. extremities or head) *Use of iterative reconstruction technique DLP: 2079 mGy-cm FINDINGS: LUNGS: The lungs are clear with no evidence of inflammation or nodules. MEDIASTINUM: The mediastinum appears unremarkable. PLEURA: There is no pleural effusion. No pleural mass or thickening. AXILLA: No lymphadenopathy. LIVER, GALLBLADDER, AND BILIARY TREE: The liver appears unremarkable in size, shape, and attenuation. No focal hepatic lesion or biliary ductal dilatation is appreciated. Unremarkable appearance of the gallbladder. PANCREAS: Unremarkable SPLEEN: Unremarkable ADRENAL GLANDS: Unremarkable KIDNEYS AND URETERS: The kidneys appear unremarkable in size, shape, and attenuation. No hydronephrosis, hydroureter, or calculi seen. BLADDER: Unremarkable GASTROINTESTINAL TRACT: The small and large bowel appear unremarkable. ABDOMINAL WALL: No significant hernia is appreciated. LYMPH NODES: No evidence of adenopathy by size criteria. VASCULAR: Unremarkable. PELVIC VISCERA: Unremarkable OSSEOUS STRUCTURES: Unremarkable. CT/CT abdomen pelvis wo con IMPRESSION: Unremarkable CT scans of the chest, abdomen, and pelvis without oral or intravenous contrast.
[2021-11-12 16:13] VITALS: BP 115/65; PULSE 57; RESP 18; TEMP 36.8; O2SAT 99; BMI 26.6
--- NOTE | 2021-11-12 16:19 | ECG_ITS ---
Test Reason : DIZZINESS Blood Pressure : / mmHG Vent. Rate : 051 BPM Atrial Rate : 051 BPM P-R Int : 142 ms QRS Dur : 094 ms QT Int : 438 ms P-R-T Axes : 056 033 036 degrees QTc Int : 403 ms Sinus bradycardia Otherwise normal ECG No previous ECGs available Referred By: Generic ED Physician Electronically Signed By:BRADLEY CHERRY MD
[2021-11-12 16:31] LABS: Glucose, Whole Blood 91 mg/dL (60-115)
[2021-11-12 16:33] LABS: MANUAL DIFF FLAG NO
[2021-11-12 16:34] LABS: Basophils Absolute Auto 0.1 X10*3/uL (0.0-0.2); Basophils Percent Auto 0.6 % (0-2); Eosinophils Absolute Auto 0.1 X10*3/uL (0.0-0.4); Eosinophils Percent Auto 1.7 % (0-4); Hematocrit 39.4 % (42.0-52.0); Hemoglobin 13.3 g/dl (14.0-18.0); Imm Gran Abs Auto 0.02 X10*3/uL (0.00-0.03); Imm Gran Pct Auto 0.2 % (0.0-0.4); Lymphocytes Absolute Auto 2.9 X10*3/uL (1.2-4.9); Mean Corpuscular HGB Conc 33.8 g/dl (31.0-36.0); Mean Corpuscular Hemoglobin 30.6 pg (27.0-33.0); Mean Corpuscular Volume 90.8 fL (80.0-98.0); Mean Platelet Volume 9.8 fL (9.4-12.4); Monocytes Absolute Auto 0.5 X10*3/uL (0.1-1.2); Monocytes Percent Auto 6.5 % (2-11); Neutrophils Absolute Auto 4.5 x10*3/uL (2.0-8.3); Platelet Count 226 X10*3/uL (160-400); Red Blood Count 4.34 X10*6/uL (4.60-5.80); Red Cell Distribution Width 13.8 % (11.0-16.0); White Blood Count 8.1 X10*3/uL (4.8-10.8)
[2021-11-12 16:45] LABS: Appearance Urine CLEAR; Color Urine YELLOW; Glucose Urine UA NEG (NEG); Leukocyte Esterase Urine NEG (NEG); Nitrite Urine NEG (NEG); Specific Gravity - Urine >= 1.030 (1.005-1.025); Urine Blood NEG (NEG); Urine Ketones 5 MG/DL (NEG); Urine Protein NEG (NEG-TRACE)
[2021-11-12 16:53] LABS: COVID-19 Test Negative (Negative); IDNOW Serial# 16C4AD1C
[2021-11-12 16:55] LABS: Anion Gap 12 (12-20); Blood Urea Nitrogen 11 mg/dL (9-16); Calcium 8.8 mg/dL (8.4-10.2); Carbon Dioxide 25 mmol/L (22-29); Chloride 108 mmol/L (96-108); Estimated Glomerular Filt Rate > 60; Glucose Random 87 mg/dL (60-115); Potassium 4.2 mmol/L (3.3-5.1); Sodium 141 mmol/L (135-145)
[2021-11-12 17:00] LABS: Troponin-I High Sensitivity < 3.5 ng/L (<3.5-35.0)
[2021-11-12 17:18] LABS: Mucus Urine TRACE /LPF; RBC Urine 0-2 /HPF (0); Squamous Epithelial Cell Urine TRACE /LPF; WBC Urine 0-2 /HPF (0-4)
--- NOTE | 2021-11-12 17:38 | ED.GENADULT ---
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 Patient states that over the last week he feels he has been losing more weight and feeling dizzy. Patient denies any lightheadedness, abdominal pain, nausea, vomiting, fever, chills, blurry vision, double vision, loss of vision, chest pain, difficulty breathing, shortness of breath, back pain, night sweats, pain with urination, increased urinary frequency, increased urinary urgency, blood in his urine or stool, syncope or a near syncopal episode, bowel incontinence, bladder incontinence, bowel retention, bladder retention, or any other complaints at this time. Patient states that he did have a fall but did not strike his head when it happened. Onset (ago): week(s) (1) Severity: mild Relieving factors: none Exacerbating factors: none Treatments prior to arrival: none Related Data Previous Rx's Medication Instructions Recorded acetaminophen 500 mg tablet 1,000 mg PO QID PRN fever or pain 02/27/21 (Tylenol Extra Strength) #14 tabs azithromycin 250 mg tablet See Rx Instructions PO .COMPLEX #6 02/27/21 tabs ibuprofen 800 mg tablet 800 mg PO Q8H PRN pain #14 tabs 02/27/21 amoxicillin 875 mg-potassium 1 tab PO BID #14 tabs 05/29/21 clavulanate 125 mg tablet ibuprofen 600 mg tablet 600 mg PO Q8H PRN pain #20 tabs 05/29/21 oxycodone 5 mg tablet 5 mg PO Q8H PRN pain #8 tabs 05/29/21 acetaminophen 500 mg tablet 500 mg PO Q6H PRN pain or fever 06/21/21 (Tylenol Extra Strength) #20 tabs bacitracin 500 unit/gram topical 1 appl topical BID #30 grams 06/21/21 ointment naproxen 500 mg tablet 500 mg PO BID PRN pain 10 days #20 06/21/21 tabs Allergies Allergy/AdvReac Type Severity Reaction Status Date / Time No Known Allergies Allergy Verified 11/12/21 16:13 [No Known Allergies*] Review of Systems Constitutional: Constitutional: Reports no additional constitutional complaints, Denies chills, Denies fever(s), Denies night sweats and Reports weight loss Eyes: Eyes: Reports no additional eye complaints, Denies blurry vision, Denies change in vision, Denies diplopia, Denies eye discharge, Denies loss of vision and Denies eye pain ENT: Reports dizziness Cardiovascular: Cardiovascular: Reports no additional cardiovascular complaints, Denies chest pain, Denies lightheadedness, Denies Loss of Consciousness and Denies dyspnea Respiratory: Respiratory: Reports no additional respiratory complaints and Denies dyspnea Gastrointestinal: Gastrointestinal: Reports no additional gastrointestinal complaints, Denies abdominal pain, Denies melena, Denies hematochezia, Denies change in bowel habits and Denies change in stool character Genitourinary: Genitourinary: Reports no additional male genitourinary complaints, Denies hematuria, Denies oliguria, Denies difficulty urinating, Denies dysuria, Denies urinary frequency, Denies urinary hesitancy, Denies urinary incontinence and Denies urinary urgency Musculoskeletal: Musculoskeletal: Reports no additional musculoskeletal complaints, Denies numbness and Denies tingling Neurologic: Reports dizziness, Denies loss of vision, Denies numbness and Denies tingling Psychiatric: Psychiatric: Reports no additional psychiatric complaints Endocrine: Endocrine: Reports no additional endocrine complaints Hematologic/Lymphatic: Hematologic/Lymphatic: Reports no additional hematologic/lymphatic complaints Allergic/Immunologic: Allergic/Immunologic: Reports no additional allergic/immunologic complaints COUNT INCLUDES THE [facility] Past Medical History Attestation statement: The following information was validated with the patient. Source: old records reviewed Medical History Asthma Social History Social History Alcohol intake: never Patient Tobacco Use Status: Current everyday Tobacco user Use of substances other than those prescribed or required for medical reasons: Yes Substance Use Type: Marijuana Substance Use Frequency: Daily Advance Directives: No Advance Directives Information Provided: No Physical Exam ED Vital Signs: Vital Signs - 24 hr 11/12/21 16:13 11/12/21 18:35 Temperature 98.3 F 98.1 F Pulse Rate 57 57 Respiratory Rate 18 Blood Pressure 115/65 121/65 Pulse Oximetry 99 99 Oxygen Delivery Method Room Air Room Air BMI result Body Mass Index 26.6 Const General: cooperative, no acute distress, alert and awake Nutritional Appearance: well nourished Orientation/consciousness: patient oriented x3 Limitations: no limitations HENMT Head: Yes normal to inspection and Yes atraumatic Ears: hearing grossly normal bilaterally and external ears normal General nose exam: Normal external nose present, no nasal discharge noted and no epistaxis Face and sinus: Yes normal facial exam, No abrasion and No laceration Mouth: Normal oral and palatal mucosa present, no drooling and no muffled voice Eyes General: appearance normal, both eyes and all related structures Periorbital: periorbital findings normal Eyelids: Yes eyelids normal Conjunctivae: conjunctivae normal Pupils: Equal, round and reactive pupils present EOM: EOMs intact bilaterally Neck Neck: Yes normal visual inspection, Yes full ROM and Yes no lymphadenopathy Chest Chest palpation & inspection: normal inspection of the chest Resp Effort & Inspection: normal respiratory effort and able to speak in complete sentences Auscultation: clear to auscultation bilaterally Cardio Rate: regular rate Rhythm: regular rhythm GI Inspection: Yes normal to inspection Palpation (GI): Soft to palpation, not firm, nontender and no guarding Neuro General: patient oriented x3 and moves all extremities Cranial nerves: Yes Equal, round and reactive pupils present Cognition (Neuro): normal cognition Motor exam (neuro): 5/5 motor strength present throughout Sensory Exam: Normal double simultaneous stimulation for sensation Coordination: [id number] test normal Extrem General: Yes normal to inspection, Yes full ROM and Yes capillary refill normal Psych Appearance: grossly normal Mental Status: mental status grossly normal Affect: normal affect Attitude: cooperative Thought process: Normal thought process present Thought content: Normal thought content present Insight: Good insight present (Psych) Medical Decision Making MDM Narrative Medical decision making narrative: Patient is a 36 year old male presenting to the emergency department today with dizziness and weight loss. Patient's physical exam was unremarkable. Patient's blood work was unremarkable. Patient's EKG was unremarkable. Patient's chest x-ray, head CT, chest CT, C-Spine CT, Abdomen/pelvis CT all showed no acute process. I explained my physical exam findings as well as all test results to the patient. I answered all questions asked by the patient. I stressed the importance of the patient taking his medication as prescribed. I stressed the importance of the patient following up with his primary care provider. I stressed the importance of the patient returning to the emergency department immediately if his symptoms were to worsen or if he were to develop any dizziness, shortness of breath, difficulty breathing, chest pain, blurry vision, loss of vision, nausea, vomiting, abdominal pain, fever, chills, back pain, or any other complaints. Patient verbalized agreement and understanding with this treatment plan and discharge. Differential Diagnosis Differential Diagnosis: dizziness Medical Records Medical records reviewed: Yes I reviewed the patient's medical records. Lab Data Lab results reviewed: Yes I reviewed the patient's lab results. Result diagrams: 11/12/21 16:27 11/12/21 16:27 Labs: Lab Results 11/12/21 11/12/21 11/12/21 Range/Units 16:19 16:20 16:27 WBC (4.8-10.8) X10*3/uL RBC (4.60-5.80) X10*6/uL Hgb (14.0-18.0) g/dl Hct (42.0-52.0) % MCV (80.0-98.0) fL MCH (27.0-33.0) pg MCHC (31.0-36.0) g/dl RDW (11.0-16.0) % Plt Count (160-400) X10*3/uL MPV (9.4-12.4) fL Immature Gran % (Auto) (0.0-0.4) % Neut % (Auto) (45-73) % Lymph % (Auto) (20-40) % [place] % (Auto) (2-11) % Eos % (Auto) (0-4) % Baso % (Auto) (0-2) % Lymph # (Auto) (1.2-4.9) X10*3/uL [place] # (Auto) (0.1-1.2) X10*3/uL Eos # (Auto) (0.0-0.4) X10*3/uL Baso # (Auto) (0.0-0.2) X10*3/uL Abs Immat Gran (auto) (0.00-0.03) X10*3/uL Absolute Neuts (auto) (2.0-8.3) x10*3/uL Absolute Nucleated RBC (0.0-0.012) X10*3/uL Nucleated RBC % (auto) (0.0-0.2) /100WBC Sodium (135-145) mmol/L Potassium (3.3-5.1) mmol/L Chloride (96-108) mmol/L Carbon Dioxide (22-29) mmol/L Anion Gap (12-20) BUN (9-16) mg/dL Creatinine (0.5-1.4) mg/dL Estim Creat Clear Calc Estimated GFR POC Glucose 91 (60-115) mg/dL Random Glucose (60-115) mg/dL Estimat Average Glucose 94 mg/dL Hemoglobin A1c % 4.9 % Calcium (8.4-10.2) mg/dL Magnesium (1.6-2.6) mg/dL Total Bilirubin (0.0-1.0) mg/dL Direct Bilirubin (0.0-0.5) mg/dL AST (5-37) U/L ALT (0-40) U/L Alkaline Phosphatase (39-117) U/L Troponin I High Sens (<3.5-35.0) ng/L Total Protein (6.5-8.0) g/dL Albumin (3.5-5.0) g/dL Urine Color Urine Appearance Urine pH (5.0-8.0) Ur Specific [employer] (1.005-1.025) Urine Protein (NEG-TRACE) MG/DL Urine Glucose (UA) (NEG) MG/DL Urine Ketones (NEG) MG/DL Urine Blood (NEG) Urine Nitrite (NEG) Ur Leukocyte Esterase (NEG) Urine RBC (0) /HPF Urine WBC (0-4) /HPF Ur Squamous Epith Cells /LPF Urine Bacteria /LPF Urine Mucus /LPF COVID-19 ([facility]) Negative (Negative) COVID-19 Clin Com See Note 11/12/21 11/12/21 11/12/21 Range/Units 16:27 16:27 16:27 WBC 8.1 (4.8-10.8) X10*3/uL RBC 4.34 L (4.60-5.80) X10*6/uL Hgb 13.3 L (14.0-18.0) g/dl Hct 39.4 L (42.0-52.0) % MCV 90.8 (80.0-98.0) fL MCH 30.6 (27.0-33.0) pg MCHC 33.8 (31.0-36.0) g/dl RDW 13.8 (11.0-16.0) % Plt Count 226 (160-400) X10*3/uL MPV 9.8 (9.4-12.4) fL Immature Gran % (Auto) 0.2 (0.0-0.4) % Neut % (Auto) 55.0 (45-73) % Lymph % (Auto) 36.0 (20-40) % [place] % (Auto) 6.5 (2-11) % Eos % (Auto) 1.7 (0-4) % Baso % (Auto) 0.6 (0-2) % Lymph # (Auto) 2.9 (1.2-4.9) X10*3/uL [place] # (Auto) 0.5 (0.1-1.2) X10*3/uL Eos # (Auto) 0.1 (0.0-0.4) X10*3/uL Baso # (Auto) 0.1 (0.0-0.2) X10*3/uL Abs Immat Gran (auto) 0.02 (0.00-0.03) X10*3/uL Absolute Neuts (auto) 4.5 (2.0-8.3) x10*3/uL Absolute Nucleated RBC 0.000 (0.0-0.012) X10*3/uL Nucleated RBC % (auto) 0.0 (0.0-0.2) /100WBC Sodium 141 (135-145) mmol/L Potassium 4.2 (3.3-5.1) mmol/L Chloride 108 (96-108) mmol/L Carbon Dioxide 25 (22-29) mmol/L Anion Gap 12 (12-20) BUN 11 (9-16) mg/dL Creatinine 0.97 (0.5-1.4) mg/dL Estim Creat Clear Calc 95.0 Estimated GFR > 60 POC Glucose (60-115) mg/dL Random Glucose 87 (60-115) mg/dL Estimat Average Glucose mg/dL Hemoglobin A1c % % Calcium 8.8 (8.4-10.2) mg/dL Magnesium 2.0 (1.6-2.6) mg/dL Total Bilirubin 0.4 (0.0-1.0) mg/dL Direct Bilirubin 0.2 (0.0-0.5) mg/dL AST 16 (5-37) U/L ALT 14 (0-40) U/L Alkaline Phosphatase 62 (39-117) U/L Troponin I High Sens < 3.5 (<3.5-35.0) ng/L Total Protein 7.0 (6.5-8.0) g/dL Albumin 4.2 (3.5-5.0) g/dL Urine Color Urine Appearance Urine pH (5.0-8.0) Ur Specific [employer] (1.005-1.025) Urine Protein (NEG-TRACE) MG/DL Urine Glucose (UA) (NEG) MG/DL Urine Ketones (NEG) MG/DL Urine Blood (NEG) Urine Nitrite (NEG) Ur Leukocyte Esterase (NEG) Urine RBC (0) /HPF Urine WBC (0-4) /HPF Ur Squamous Epith Cells /LPF Urine Bacteria /LPF Urine Mucus /LPF COVID-19 ([facility]) (Negative) COVID-19 Clin Com 11/12/21 Range/Units 16:39 WBC (4.8-10.8) X10*3/uL RBC (4.60-5.80) X10*6/uL Hgb (14.0-18.0) g/dl Hct (42.0-52.0) % MCV (80.0-98.0) fL MCH (27.0-33.0) pg MCHC (31.0-36.0) g/dl RDW (11.0-16.0) % Plt Count (160-400) X10*3/uL MPV (9.4-12.4) fL Immature Gran % (Auto) (0.0-0.4) % Neut % (Auto) (45-73) % Lymph % (Auto) (20-40) % [place] % (Auto) (2-11) % Eos % (Auto) (0-4) % Baso % (Auto) (0-2) % Lymph # (Auto) (1.2-4.9) X10*3/uL [place] # (Auto) (0.1-1.2) X10*3/uL Eos # (Auto) (0.0-0.4) X10*3/uL Baso # (Auto) (0.0-0.2) X10*3/uL Abs Immat Gran (auto) (0.00-0.03) X10*3/uL Absolute Neuts (auto) (2.0-8.3) x10*3/uL Absolute Nucleated RBC (0.0-0.012) X10*3/uL Nucleated RBC % (auto) (0.0-0.2) /100WBC Sodium (135-145) mmol/L Potassium (3.3-5.1) mmol/L Chloride (96-108) mmol/L Carbon Dioxide (22-29) mmol/L Anion Gap (12-20) BUN (9-16) mg/dL Creatinine (0.5-1.4) mg/dL Estim Creat Clear Calc Estimated GFR POC Glucose (60-115) mg/dL Random Glucose (60-115) mg/dL Estimat Average Glucose mg/dL Hemoglobin A1c % % Calcium (8.4-10.2) mg/dL Magnesium (1.6-2.6) mg/dL Total Bilirubin (0.0-1.0) mg/dL Direct Bilirubin (0.0-0.5) mg/dL AST (5-37) U/L ALT (0-40) U/L Alkaline Phosphatase (39-117) U/L Troponin I High Sens (<3.5-35.0) ng/L Total Protein (6.5-8.0) g/dL Albumin (3.5-5.0) g/dL Urine Color YELLOW Urine Appearance CLEAR Urine pH 6.0 (5.0-8.0) Ur Specific [employer] >= 1.030 H (1.005-1.025) Urine Protein NEG (NEG-TRACE) MG/DL Urine Glucose (UA) NEG (NEG) MG/DL Urine Ketones 5 (NEG) MG/DL Urine Blood NEG (NEG) Urine Nitrite NEG (NEG) Ur Leukocyte Esterase NEG (NEG) Urine RBC 0-2 (0) /HPF Urine WBC 0-2 (0-4) /HPF Ur Squamous Epith Cells TRACE /LPF Urine Bacteria NONE /LPF Urine Mucus TRACE /LPF COVID-19 ([facility]) (Negative) COVID-19 Clin Com Imaging Data CT head and C-Spine: Attestation: I personally reviewed and interpreted this imaging study as follows: My impression: No acute process. Radiologist's impression: EXAMINATION: NONCONTRAST HEAD CT NONCONTRAST CERVICAL SPINE CT INDICATION INFORMATION: Fall COMPARISON: None TECHNIQUE: Separate noncontrast CT examinations of the head and cervical spine were performed. Coronal and sagittal images were created for each examination at the technologist workstation. This CT examination was performed using dose optimization techniques as appropriate, variously including the following: *Automated exposure control *Adjustment of mA and/or kV according to patient size (this includes techniques or standardized protocols for targeted exams where dose is matched to indication/reason for exam; i.e. extremities or head) *Use of iterative reconstruction technique DLP: 1239 mGy-cm FINDINGS: HEAD: No intra or extra-axial fluid collection, hemorrhage, or mass. No ventriculomegaly. No midline shift or herniation. Basal cisterns are patent. Scales-white matter differentiation is maintained. No territorial encephalomalacia. 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 No significant volume loss. There is no abnormal attenuation within the brain parenchyma. No calvarial fracture or soft tissue abnormality.? The mastoid air cells and visualized portions of the paranasal sinuses are well aerated. CERVICAL SPINE: Alignment: Normal. No subluxation. Vertebra: No acute fracture. No prevertebral soft tissue swelling. Degenerative disc disease: Preserved intervertebral disc heights. Minimal anterior endplate proliferative change at C5-C6. Other findings: No cervical lymphadenopathy. Visualized major salivary glands and thyroid gland are unremarkable. Visualized lung apices are clear. CT/CT head/brain wo con IMPRESSION: ? 1. No intracranial hemorrhage or calvarial fracture. 2. No traumatic subluxation or acute cervical spine fracture. Dictated By: Sai Ureña Signed By: Electronically signed by Sai?Niranjan 11/12/[address] chest, abdomen, pelvis: Attestation: I personally reviewed and interpreted this imaging study as follows: My impression: No acute process. Radiologist's impression: EXAMINATION: CT CHEST, ABDOMEN, AND PELVIS WITHOUT CONTRAST CLINICAL INFORMATION: Weight loss. Fall.? COMPARISON: None? TECHNIQUE: Multidetector volumetric CT imaging of the chest, abdomen, and pelvis was obtained without oral or intravenous contrast. Axial MIP volume rendering provided. Sagittal and coronal reformatted images were obtained. This CT examination was performed using dose optimization techniques as appropriate, variously including the following: *Automated exposure control *Adjustment of mA and/or kV according to patient size (this includes techniques or standardized protocols for targeted exams where dose is matched to indication/reason for exam; i.e. extremities or head) *Use of iterative reconstruction technique DLP: 2079 mGy-cm FINDINGS: LUNGS: The lungs are clear with no evidence of inflammation or nodules. ? MEDIASTINUM: The mediastinum appears unremarkable.? PLEURA: There is no pleural effusion. No pleural mass or thickening.? AXILLA: No lymphadenopathy.? LIVER, GALLBLADDER, AND BILIARY TREE: The liver appears unremarkable in size, shape, and attenuation. No focal hepatic lesion or biliary ductal dilatation is appreciated. Unremarkable appearance of the gallbladder. PANCREAS: Unremarkable? SPLEEN: Unremarkable? ADRENAL GLANDS: Unremarkable? KIDNEYS AND URETERS: The kidneys appear unremarkable in size, shape, and attenuation. No hydronephrosis, hydroureter, or calculi seen. ? BLADDER: Unremarkable? GASTROINTESTINAL TRACT: The small and large bowel appear unremarkable. ? ABDOMINAL WALL: No significant hernia is appreciated.? LYMPH NODES: No evidence of adenopathy by size criteria. VASCULAR: Unremarkable. PELVIC VISCERA: Unremarkable OSSEOUS STRUCTURES: Unremarkable.? CT/CT chest wo con IMPRESSION: ? Unremarkable CT scans of the chest, abdomen, and pelvis without oral or intravenous contrast. Dictated By: Asda Steel Signed By: Electronically signed by Asad Steel 11/12/21 190 Chest x-ray: Attestation: I personally reviewed and interpreted this imaging study as follows: My impression: No acute process. Radiologist's impression: EXAMINATION: XR CHEST CLINICAL INFORMATION: Shortness of breath COMPARISON: Chest x-ray 02/27/2021 TECHNIQUE: Frontal view of the chest was obtained. FINDINGS: The lungs are clear. No airspace consolidation, pleural effusion, or pneumothorax. The cardiomediastinal silhouette is within normal limits. No acute osseous injury. XR/XR chest 1V IMPRESSION: No acute pulmonary process. Dictated By: Sai Ureña Signed By: Electronically signed by Jose 11/12/21 1716 ECG Data Attestation: I personally reviewed and interpreted this ECG as follows: Prior ECG tracings: not available for review Interpretation: Vent. Rate: 051 BPM ? ? Atrial Rate: 051 BPM P-R Int: 142 ms? QRS Dur: 094 ms QT Int: 438 ms ? ? ? P-R-T Axes: 056 033 036 degrees QTc Int: 403 ms ? Sinus bradycardia Otherwise normal ECG No previous ECGs available DD/ 1621 Discharge Plan Discharge Clinical Impression: Dizziness Patient Disposition: Home, Self-Care Instructions: Dizziness (ED) Additional Instructions: Follow up with your primary care provider. Return to the emergency department immediately if your symptoms worsen or if you develop any dizziness, shortness of breath, difficulty breathing, chest pain, blurry vision, loss of vision, nausea, vomiting, abdominal pain, fever, chills, back pain, or any other complaints. Prescriptions: No Action amoxicillin-pot clavulanate 875-125 mg tablet 1 tab PO BID Qty: 14 0RF ibuprofen 600 mg tablet 600 mg PO Q8H PRN (Reason: pain) Qty: 20 0RF oxycodone 5 mg tablet 5 mg PO Q8H PRN (Reason: pain) Qty: 8 0RF bacitracin 500 unit/gram ointment 1 appl topical BID Qty: 30 0RF acetaminophen [Tylenol Extra Strength] 500 mg tablet 500 mg PO Q6H PRN (Reason: pain or fever) Qty: 20 0RF naproxen 500 mg tablet 500 mg PO BID PRN (Reason: pain) 10 Days Qty: 20 0RF azithromycin 250 mg tablet See Rx Instructions .ROUTE .COMPLEX Qty: 6 0RF Rx Instructions: take 500 mg today (day 1), then 250 mg for 4 days (days 2-5) ibuprofen 800 mg tablet 800 mg PO Q8H PRN (Reason: pain) Qty: 14 0RF acetaminophen [Tylenol Extra Strength] 500 mg tablet 1,000 mg PO QID PRN (Reason: fever or pain) Qty: 14 0RF Referrals: [facility] [Provider Group] (Call to establish and follow up with a primary care provider. If you already have a primary care provider, please call and follow up with them. ) [facility] [facility] [[facility]] (Call to establish and follow up with a primary care provider. If you already have a primary care provider, please call and follow up with them. ) [facility] [Provider [facility]] (Call to establish and follow up with a primary care provider. If you already have a primary care provider, please call and follow up with them. ) Stand Alone Forms: Work/School Release Interventions: ED Discharge Assessment Last Done: 11/12/21 19:29 Discharge Date/Time: 11/12/21 19:34 Print Language: Croatian
[2021-11-12 18:28] LABS: Alanine Aminotransferase 14 U/L (0-40); Albumin Level 4.2 g/dL (3.5-5.0); Aspartate Amino Transferase 16 U/L (5-37); Bilirubin Direct 0.2 mg/dL (0.0-0.5); Bilirubin Total 0.4 mg/dL (0.0-1.0)
[2021-11-12 18:30] LABS: Estimated Average Glucose 94 mg/dL; Hemoglobin A1c % 4.9 %
[2021-11-12 18:35] VITALS: BP 121/65; PULSE 57; TEMP 36.7; O2SAT 99
[2021-11-12 18:40] LABS: Alkaline Phosphatase 62 U/L (39-117)
== END 2021-11-12 19:34 | disposition home or self-care (01) ==
PROVIDERS: Physician Assistant Medical; Emergency Provider Internal Medicine
DX: R06.02 Shortness of breath (principal); R42 Dizziness and giddiness; R51.9 Headache, unspecified; M54.6 Pain in thoracic spine; M54.2 Cervicalgia; R10.9 Unspecified abdominal pain; F17.200 Nicotine dependence, unspecified, uncomplicated; Z20.822 Contact with and (suspected) exposure to COVID-19; Z79.899 Other long term (current) drug therapy; Z71.6 Tobacco abuse counseling
CPT/HCPCS: 36415; 70450; 71045; 71250; 72125; 74176; 80048; 80076; 81001; 82947; 83036; 83735; 84484; 85025; 87635; 93005; 99284

== ENCOUNTER → 2024-04-22 12:16 | Outpatient (BNVA) | payer SELFPAY | DX: R76.11 Nonspecific reaction to tuberculin skin test without active tuberculosis (principal) ==

== ENCOUNTER 2024-11-19 19:46 | Inpatient (IN) | payer OTHER, SELFPAY ==
--- NOTE | ~2024-11-19 | XR_ITS ---
CLINICAL HISTORY: Heavy objects dropped on R great toe 3 view right 1st toe Comparison: None provided Findings: No fractures or dislocations. No erosions. No radiopaque foreign body. IMPRESSION: 1. No acute findings This document has been electronically signed by: Liv Cantor MD on 11/24/2024 19:05:49
--- NOTE | 2024-11-19 20:11 | ED_ITS ---
HPI - Psych General Chief Complaint: Psychiatric Symptoms Stated Complaint: SI Time Seen by Provider: 11/19/24 21:06 Source: patient Mode of arrival: ambulatory Limitations: no limitations History of Present Illness ED Provider: Dr. Justine Appiah HPI Narrative: Patient comes to the emergency room complaining of depression, suicide ideation. Patient states that earlier today, he used heroin and then was contemplating hanging himself. Patient states that his found him before he had any chance of hurting himself. Patient denies HI. Related Data Home Medications ?Medication ?Instructions ?Recorded ?Confirmed methadone 10 mg/mL oral 62 mg PO DAILY 11/20/2412/07 concentrate (Methadone Intensol) Allergies Allergy/AdvReac Type Severity Reaction Status Date / Time No Known Allergies (No Known Allergy Verified 11/19/24 20:12 Allergies*) Review of Systems 2 Review of Systems: Constitutional : No Weight loss, No Fever, No Chills, No Night Sweats, No Fatigue, No Malaise ENT/Mouth : No Hearing loss, No Ear Pain, No Nasal Congestion, No Sinus Pain, No Hoarseness, No sore throat, No Rhinorrhea, No Swallowing Difficulty Eyes: No Eye Pain, No Swelling, No Redness, No Foreign Body, No Discharge, No Vision Changes Cardiovascular : No Chest Pain, No SOB, No Dyspnea on Exertion, No Orthopnea, No Edema, No Palpitations Respiratory : No Cough, No Sputum, No Wheezing, No Smoke Exposure, No Dyspnea Gastrointestinal : No Nausea, No Vomiting, No Diarrhea, No Constipation, No abdominal Pain, No Hematochezia, No Melena Genitourinary : no irregular bleeding, No Dysuria, No Urinary Frequency, No Hematuria, No Urinary Incontinence, No Urgency, No Flank Pain, No Urinary Flow Changes, No Hesitancy Musculoskeletal : No joint pain, No Myalgias, No Joint Swelling Skin : No Skin Lesions, No rash Neuro : No Weakness, No Numbness, No Paresthesias, No Loss of Consciousness, No Dizziness, No Headache Psych : Complaining of anxiety, depression, suicide ideation, no HI Heme/Lymph: No Bruising, No Bleeding,No Lymphadenopathy Endocrine : No Polyuria, No Polydipsia, No Temperature Intolerance PMFSH Past Medical History Medical History Asthma Social History Social History Household Members: Family Household Members Other:: Spouse, 2 adult children 20 and 24 y.o. and mother Housing: House Do you presently have visiting nurse or other home services: No Alcohol intake: never Patient Tobacco Use Status: Current everyday Tobacco user Tobacco use type: Cigarette Cigarette Packs Per Day: 2 Cigarettes Per Day: 40.0 Smoked in Last 30 Days: Yes e-Cigarette/Vaping Use: Never Used Patient Interested in Nicotine Replacement: Yes (patch and gum) Second Hand Smoke Exposure: No Use of substances other than those prescribed or required for medical reasons: Yes Substance Use Type: Heroin and Marijuana Last Used Substance: Hours (ago) Currently Displaying Signs/Symptoms of Drug Intoxication Withdrawal: No Have you been hit, kicked, punched, or otherwise hurt by someone within the past year? If so, by whom?: No Do you feel safe in your current relationship?: Yes Is there a partner from a previous relationship who is making you feel unsafe now?: No Are you made to feel afraid or neglected: No Advance Directives: No Advance Directives Information Provided: No Do you have thoughts of harming others: None Do you have a plan to hurt others: No Plan Recently lost weight without trying: Yes How much weight loss: 2-13 pounds Eating poorly because of decreased appetite: Yes Nutrition screen score: 4 Nutrition Risks: No Nutritional Risk Poor oral hygiene: No service: No Sexual orientation: Straight/Heterosexual Physical Exam 2 Exam: Exam: Appearance: Alert. Oriented X3. No acute distress. Eyes: Pupils equal, round and reactive to light. ENT: Pharynx normal. Neck: Normal inspection. Neck supple. No lymph nodes noted. No crepitus CVS: Normal heart rate and rhythm. Pulses normal. Normal S1 and S2 Respiratory: No respiratory distress. Breath sounds normal. No Wheezing. No rales Abdomen: Soft and nontender. No rigidity. No distention. Skin: Skin warm and dry. Normal skin color. Normal skin turgor. Extremities: No lower extremity edema. No Lacerations. No Rash Neuro: Oriented X 3. No motor deficit. No sensory deficit. Moving all extremities. No slurred speech. CN 2 through 12 grossly intact Psych: calm, cooperative, a bit tearful Vital Signs: Vital Signs: Last Vital Signs Temp 98.4 F 11/25/24 20:00 Pulse 63 11/25/24 20:00 Resp 18 11/25/24 20:00 BP 124/70 11/25/24 20:00 Pulse Ox 98 11/25/24 20:00 O2 Del Method Room Air 11/25/24 20:00 BMI result Body Mass Index 23.6 Course Course Course Narrative: This is a rapid medical exam performed by Yuval Penn NP: Additional HPI, ROS, PE not included below will be deferred to primary provider. Patient is a 39-year-old Greek speaking male presenting to the ED with who reports patient has been expressing suicidal ideation, hx of attempts in the past. Also admits to heroin use, currently on methadone. Denies physical complaints. Plan: Med clearance then CARE team evaluation Reevaluation(s) Reevaluation #1: Date: 11/20/24 Provider: Samuel Cartwright MD 09:28 Patient in physician observation for psychiatric evaluation. Patient was evaluated by the care team. The patient has suicidal ideation with a plan to hang himself with a rope that he found in his backyard. Patient meets inpatient level of care. Patient was placed on a Section 12 by mi. Will continue to monitor. 12:13 Physician observation ended at 12:13. Patient to be admitted as inpatient to psychiatry. Medications Administered Generic Name Dose Route Start Last Admin Trade Name Freq PRN Reason Stop Dose Admin Methadone HCl 67 mg 11/21/24 09:00 11/25/24 07:56 Methadone Hcl 20 Mg/2 Ml Oral.Conc PO 67 mg DAILY TEVIN Administration Sertraline HCl 50 mg 11/20/24 14:45 11/25/24 07:57 Sertraline Hcl 50 Mg Tablet PO 50 mg DAILY TEVIN Administration Trazodone HCl 50 mg 11/20/24 12:35 11/25/24 20:46 Trazodone Hcl 50 Mg Tablet PO 50 mg BEDTIME MRX1 PRN Administration Insomnia Discontinued Medications Generic Name Dose Route Start Last Admin Trade Name Freq PRN Reason Stop Dose Admin Methadone HCl 62 mg 11/20/24 10:30 11/20/24 10:44 Methadone Hcl 20 Mg/2 Ml Oral.Conc PO 62 mg DAILY TEVIN Administration Methadone HCl 5 mg 11/20/24 14:40 11/20/24 15:09 Methadone Hcl 20 Mg/2 Ml Oral.Conc PO 11/20/24 14:41 5 mg ONCE ONE Administration Nicotine 21 mg 11/20/24 14:45 11/24/24 08:12 Nicotine 21 Mg Patch.Td24 TRANSDERMA Not Given DAILY TEVIN Medical Decision Making Medical Decision Making [facility] Narrative: My interpretation of labs: Patient's white blood cell count 11.8, no obvious source of infection, normal chemistry, normal LFTs, ETOH negative Patient is on a Section 12 Care team consult pending Physician observation started at 21:45 Urinalysis/U tox pending Differential Diagnosis Differential Diagnoses: The differential diagnosis associated with the presentation includes (Polysubstance abuse, anxiety, depression) Admission/Observation Consideration of admission/observation: Escalation of care including admission/observation considered (Physician observation and on a Section 12 waiting for the care team to determine patient's disposition) Lab Data [facility] Lab Attestation statement: I reviewed the patient's lab results. 11/19/24 21:14 11/19/24 21:14 Labs: Lab Results 11/19/24 11/19/24 11/20/24 Range/Units 21:14 21:49 06:56 WBC 11.8 H (4.8-10.8) X10*3/uL RBC 5.04 (4.60-5.80) X10*6/uL Hgb 15.1 (14.0-18.0) g/dl Hct 45.0 (42.0-52.0) % MCV 89.3 (80.0-98.0) fL MCH 30.0 (27.0-33.0) pg MCHC 33.6 (31.0-36.0) g/dl RDW 13.5 (11.0-16.0) % Plt Count 308 D (160-400) X10*3/uL MPV 8.8 L (9.4-12.4) fL Immature Gran % (Auto) 0.4 (0.0-0.4) % Neut % (Auto) 69.7 (45-73) % Lymph % (Auto) 19.9 L (20-40) % [place] % (Auto) 6.5 (2-11) % Eos % (Auto) 3.1 (0-4) % Baso % (Auto) 0.4 (0-2) % Lymph # (Auto) 2.4 (1.2-4.9) X10*3/uL [place] # (Auto) 0.8 (0.1-1.2) X10*3/uL Eos # (Auto) 0.4 (0.0-0.4) X10*3/uL Baso # (Auto) 0.1 (0.0-0.2) X10*3/uL Abs Immat Gran (auto) 0.05 H (0.00-0.03) X10*3/uL Absolute Neuts (auto) 8.2 (2.0-8.3) x10*3/uL Absolute Nucleated RBC 0.000 (0.0-0.012) X10*3/uL Nucleated RBC % (auto) 0.0 (0.0-0.2) /100WBC Sodium 140 (135-145) mmol/L Potassium 3.7 (3.3-5.1) mmol/L Chloride 104 (96-108) mmol/L Carbon Dioxide 24 (22-29) mmol/L Anion Gap 16 (12-20) BUN 14 (9-16) mg/dL Creatinine 1.17 (0.5-1.4) mg/dL Estim Creat Clear Calc 90.2 Estimated GFR > 60 Random Glucose 83 (60-115) mg/dL Calcium 9.1 (8.4-10.2) mg/dL Total Bilirubin 0.3 (0.0-1.0) mg/dL AST 24 (5-37) U/L ALT 23 (0-40) U/L Alkaline Phosphatase 81 (39-117) U/L Total Protein 8.5 H (6.5-8.0) g/dL Albumin 4.7 (3.5-5.0) g/dL Urine Color Dark Yellow Urine Appearance Clear Urine pH 5.5 (5.0-9.0) Ur Specific [place] >= 1.030 H (1.005-1.025) Urine Protein Trace (Neg-Trace) mg/dL Urine Glucose (UA) Negative (Negative) mg/dL Urine Ketones Trace (Negative) mg/dL Urine Blood Negative (Negative) Urine Nitrite Negative (Negative) Ur Leukocyte Esterase Negative (Negative) Salicylates < 5.0 L (15-30) mg/dL Urine Opiates Screen POSITIVE H (Not Detect) Ur Buprenorphine Scrn Not Detected (Not Detect) ng/mL Ur Oxycodone Screen Not Detected (Not Detect) ng/mL Urine Methadone Screen Positive H (Not Detect) ng/mL Urine Fentanyl Screen POSITIVE H (Not Detect) Acetaminophen < 3 (<30) mcg/mL Ur Barbiturates Screen Not Detected (Not Detect) Ur Phencyclidine Scrn Not Detected (Not Detect) Ur Amphetamines Screen Not Detected (Not Detect) U Benzodiazepines Scrn Not Detected (Not Detect) Urine Cocaine Screen POSITIVE H (Not Detect) U Marijuana (THC) Screen POSITIVE H (Not Detect) Ethyl Alcohol < 10 mg/dL Influenza Type A (PCR) NEGATIVE (Negative) Influenza Type B (PCR) NEGATIVE (Negative) RSV RNA Qual (PCR) NEGATIVE (Negative) SARS-CoV-2 RNA (RT-PCR) NEGATIVE (Negative) Critical Care Time Critical Care Time Critical Care Time: Yes Total Critical Care Time: 35 Attestation: I have personally provided critical care time. Time includes review of lab data, radiology results, discussion with consultants, and monitoring for potential decompensation. Intervention performed as documented. Discharge Plan Discharge Clinical Impression: Suicidal ideation Patient Disposition: Admitted As Inpatient Interventions: Admission Worksheet (ED) Last Done: 11/20/24 12:13 Discharge Date/Time: 11/20/24 12:51
[2024-11-19 20:12] VITALS: BP 140/81; PULSE 100; RESP 18; TEMP 37; O2SAT 97; BMI 23.6
--- NOTE | 2024-11-19 21:05 | MHC.EDTECH ---
Belongings in [facility], shelf 2. Controlled medications given to Sharmin RN- they are not locked up at this time.
[2024-11-19 21:21] LABS: MANUAL DIFF FLAG NO
[2024-11-19 21:22] LABS: Hematocrit 45.0 % (42.0-52.0); Hemoglobin 15.1 g/dl (14.0-18.0); Imm Gran Abs Auto 0.05 X10*3/uL (0.00-0.03); Imm Gran Pct Auto 0.4 % (0.0-0.4); Lymphocytes Absolute Auto 2.4 X10*3/uL (1.2-4.9); Mean Corpuscular HGB Conc 33.6 g/dl (31.0-36.0); Mean Corpuscular Hemoglobin 30.0 pg (27.0-33.0); Mean Corpuscular Volume 89.3 fL (80.0-98.0); NRBC Abs Auto 0.000 X10*3/uL (0.0-0.012); NRBC Pct Auto 0.0 /100WBC (0.0-0.2); Platelet Count 308 X10*3/uL (160-400); Red Blood Count 5.04 X10*6/uL (4.60-5.80); White Blood Count 11.8 X10*3/uL (4.8-10.8)
[2024-11-19 21:39] LABS: Alanine Aminotransferase 23 U/L (0-40); Albumin Level 4.7 g/dL (3.5-5.0); Alkaline Phosphatase 81 U/L (39-117); Anion Gap 16 (12-20); Aspartate Amino Transferase 24 U/L (5-37); Blood Urea Nitrogen 14 mg/dL (9-16); Calcium 9.1 mg/dL (8.4-10.2); Carbon Dioxide 24 mmol/L (22-29); Chloride 104 mmol/L (96-108); Creatinine Clr Calc Pharmacy 90.2; Estimated Glomerular Filt Rate > 60; Potassium 3.7 mmol/L (3.3-5.1); Sodium 140 mmol/L (135-145); Total Protein 8.5 g/dL (6.5-8.0)
[2024-11-19 21:59] LABS: Resp Syncy Virus RNA Qual PCR NEGATIVE (Negative); SARS COV2 PCR INHOUSE NEGATIVE (Negative)
[2024-11-19 22:12] LABS: Acetaminophen LAB < 3 mcg/mL (<30); Salicylate < 5.0 mg/dL (15-30)
[2024-11-19 22:37] VITALS: BP 126/74; PULSE 79; RESP 18; TEMP 37.4; O2SAT 95
--- NOTE | 2024-11-19 22:41 | PC.NURSE ---
Patient's home methadone 62 mg x4 bottles brought to the pharmacy for storage.
--- NOTE | 2024-11-19 22:56 | PC.NURSE ---
Patient is Danish speaking, alert and oriented x3, pleasant and cooperative. Patient admits SI with plan to hang himself d/t increased depression and significant life stressors. Patient changed over into a behavioral health attire, 1:1 sitter at bedside. Patient offers no complaints at present, resting in stretcher bed. Patient placed under physician observation. Plan to eval by care team/crisis and addiction medicine consult.
--- NOTE | 2024-11-20 | ECG_ITS ---
Test Reason : CHECK PROLONGED QT Blood Pressure : */* mmHG Vent. Rate : 63 BPM Atrial Rate : 63 BPM P-R Int : 132 ms QRS Dur : 84 ms QT Int : 432 ms P-R-T Axes : 73 45 38 degrees QTcB Int : 442 ms Normal sinus rhythm Normal ECG When compared with ECG of 12-Nov-2021 16:21, No significant change was found Referred By: Justine Appiah Electronically Signed By: JOSE RAMIREZ
[2024-11-20 02:17] VITALS: BP 116/72; PULSE 58; RESP 18; O2SAT 95
[2024-11-20 06:02] VITALS: BP 113/59; PULSE 56; RESP 118; O2SAT 95
[2024-11-20 07:10] LABS: Appearance Urine Clear; Glucose Urine UA Negative (Negative); PH 5.5 (5.0-9.0); Specific Gravity - Urine >= 1.030 (1.005-1.025)
[2024-11-20 07:17] LABS: Cannabinoid Screen Urine POSITIVE (Not Detect)
--- NOTE | 2024-11-20 07:22 | PC.NURSE ---
Assumed care of patient at 0645, patient appears to be in no apparent distress this am, calm and cooperative, offering no complaints to this RN. Continue plan of care for CARE team eval
[2024-11-20 09:06] VITALS: BP 119/71; PULSE 71; RESP 14; TEMP 37; O2SAT 98
--- NOTE | 2024-11-20 09:58 | HE.PHANOTE ---
Re Methadone Pt gets 62mg of methadone from [facility]. Last dose was 11/18/24 and he was given 6 take home bottles.
[2024-11-20] MEDS: methADONE HCl 20 MG/2 ML ORAL.CONC 62 MG PO (10:44)
[2024-11-20 12:42] VITALS: BMI 26.2
[2024-11-20 12:45] VITALS: BP 136/93; PULSE 92; RESP 16; TEMP 36.7; O2SAT 97
--- NOTE | 2024-11-20 13:14 | HO.PSYADMNOT ---
HPI Date of Service: 11/20/24 Chief Complaint: depression SI HPI Narrative: per CARE team faith pt brought to ED in private car by his with c/o depression and SI with polysubstance use. he reportedly had begun to attempt to hang himself with a rope in the backyard, but his stopped him. he reported psychosocial stressors of recent job loss and resultant relapse to substance misuse. on interview with MD via school office assistant, pt is calm and cooperative. he is constricted in affect, and very straight-forward in his engagement. he is interested in addiction Tx, such as outpt services and disaster recovery coordinator, but he states he cannot go to a rehab bcse he needs to pay his bills. he reports his mood was good until about a month ago when he lost his job and relapsed. his mood has been consistently low since. he would like help with depression, amotivation, drug use, and anxiety. he agrees to start zoloft for depression and anxiety, and to increase his methadone dosing slightly from 62 mg daily to 67 mg daily to curb cravings. he is interested in discussing psychopharm for cocaine use disorder. he is interested in therapy and medications referrals upon discharge. agreeable to comfort meds for cocaine and opioid withdrawal Sx. pt shows a wound on his right great toe from dropping a water cooler container on his toe 2 weeks ago, agrees to wound care consult. Past Psychiatric History: hosps: 1 prior at [facility], maybe 5-6 years ago. sa: denies prior attempts. SIB: denies intentional. h/o hitting louis when angry. outpt: when he was a boy in [place] was on zoloft for 1-2 years. reports he had poor behaviors in school, very impulsive. no Tx since. Medical Evaluation Reviewed: Yes [facility] Medical History Asthma Family History: mother - mental health - cutting, SA, crazy talk. Social History: born in [place], raised in [place]. 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 6th grade education. owns his own home with his . , 2 kids (20, 24 yo), and great aunt live there. Substance History: tobacco - 2 ppd alcohol - denies cannabis - daily cocaine - daily opioids - daily. methadone 62 mg daily. stimulants - denies benzos - denies any recent use. remote h/o use. Trauma History: denies trauma Hx Diagnostics Vital Signs (24Hr): Vital Signs - 24 hr 11/19/24 20:12 11/19/24 22:37 11/20/24 02:17 Temperature 98.6 F 99.4 F Pulse Rate 100 79 58 Respiratory Rate 18 18 18 Blood Pressure 140/81 H 126/74 116/72 Pulse Oximetry 97 95 95 Oxygen Delivery Method Room Air Room Air Room Air 11/20/24 06:02 11/20/24 09:06 11/20/24 12:45 Temperature 98.6 F 98.0 F Pulse Rate 56 71 92 Respiratory Rate 118 H 14 16 Blood Pressure 113/59 L 119/71 136/93 H Pulse Oximetry 95 98 97 Oxygen Delivery Method Room Air Room Air Room Air BMI result Body Mass Index 26.2 Labs 11/19/24 21:14 11/19/24 21:14 Labs: Laboratory Results - last 48 hr 11/19/24 11/19/24 11/20/24 21:14 21:49 06:56 WBC 11.8 H RBC 5.04 Hgb 15.1 Hct 45.0 MCV 89.3 MCH 30.0 MCHC 33.6 RDW 13.5 Plt Count 308 D MPV 8.8 L Immature Gran % (Auto) 0.4 Neut % (Auto) 69.7 Lymph % (Auto) 19.9 L [place] % (Auto) 6.5 Eos % (Auto) 3.1 Baso % (Auto) 0.4 Lymph # (Auto) 2.4 Randolph # (Auto) 0.8 Eos # (Auto) 0.4 Baso # (Auto) 0.1 Abs Immat Gran (auto) 0.05 H Absolute Neuts (auto) 8.2 Absolute Nucleated RBC 0.000 Nucleated RBC % (auto) 0.0 Sodium 140 Potassium 3.7 Chloride 104 Carbon Dioxide 24 Anion Gap 16 BUN 14 Creatinine 1.17 Estim Creat Clear Calc 90.2 Estimated GFR > 60 Random Glucose 83 Calcium 9.1 Total Bilirubin 0.3 AST 24 ALT 23 Alkaline Phosphatase 81 Total Protein 8.5 H Albumin 4.7 Urine Color Dark Yellow Urine Appearance Clear Urine pH 5.5 Ur Specific [place] >= 1.030 H Urine Protein Trace Urine Glucose (UA) Negative Urine Ketones Trace Urine Blood Negative Urine Nitrite Negative Ur Leukocyte Esterase Negative Salicylates < 5.0 L Urine Opiates Screen POSITIVE H Ur Buprenorphine Scrn Not Detected Ur Oxycodone Screen Not Detected Urine Methadone Screen Positive H Urine Fentanyl Screen POSITIVE H Acetaminophen < 3 Ur Barbiturates Screen Not Detected Ur Phencyclidine Scrn Not Detected Ur Amphetamines Screen Not Detected U Benzodiazepines Scrn Not Detected Urine Cocaine Screen POSITIVE H U Marijuana (THC) Screen POSITIVE H Ethyl Alcohol < 10 Influenza Type A (PCR) NEGATIVE Influenza Type B (PCR) NEGATIVE RSV RNA Qual (PCR) NEGATIVE SARS-CoV-2 RNA (RT-PCR) NEGATIVE Meds/Allergies Meds Home Medications ?Medication ?Instructions ?Recorded ?Confirmed ?Type methadone 10 mg/mL oral 62 mg PO DAILY 11/20/24 11/20/24 History concentrate (Methadone Intensol) Allergies Allergies Allergy/AdvReac Type Severity Reaction Status Date / Time No Known Allergies (No Known Allergy Verified 11/19/24 20:12 Allergies*) Mental Status Exam Mental Status Exam Narrative: adequately dressed and groomed in hospital garb. cooperative. no PMA/PMR. speech nml rate, decr amount, nml loudness, nml latency. thoughts linear and logical, no delusions or paranoia. affect constricted, normo-intense, non-labile. mood down. denies SI/SIBI/HI/AVH. Assessment & Plan Assessment & Plan (1) Depressive disorder: Status: Acute Code(s): F32.A - Depression, unspecified (2) Cocaine use disorder: Status: Acute Code(s): F14.10 - Cocaine abuse, uncomplicated (3) Opioid use disorder: Status: Acute Code(s): F11.90 - Opioid use, unspecified, uncomplicated (4) Tobacco use disorder: Status: Acute Code(s): F17.200 - Nicotine dependence, unspecified, uncomplicated (5) Cannabis use disorder: Status: Acute Code(s): F12.90 - Cannabis use, unspecified, uncomplicated Plan start zoloft 50 mg daily for depression and anxiety. increase methadone to 67 mg daily for cravings/opioid use. wound consult for right great toe crush injury. supportive care for cocaine, cannabis, opioid withdrawal Sx. NRT for tobacco use disorder. T/C medication for cocaine use disorder. declining rehab for now due to bills. interested in therapy and medications referral at discharge. addiction consult for community resources and disaster recovery coordinator. Patient educated on: diagnosis, medication risk/benefits and substance abuse Reason for continued inpatient stay Substantial Risk for: harm to self, inability to function and rapid decompensation Statement Statement: I have reviewed the history and physical and performed a pertinent examination on my patient. No changes have occurred unless specified. If the History and Physical was not performed prior to admission, the Hospitalist's service will be consulted for completing the admission physical. Time Spent With Patient Time: Total time managing care of this patient today _75___ minutes.
--- NOTE | 2024-11-20 14:28 | PC.ADMIT ---
This is the 1st admission for this 39 y.o. male to [facility] Referred by [facility] Care Team with Dx: Unspecified Depressive D/O, Opiate Use D/O, severe. Unspecified Cocaine Use D/O. Arrived on unit on [address] at 1233 and placed on 15 min safety checks. Skin integrity check/loom changer done upon admission with 2 staff present. Skin below right great toe nail spit wide, no drainage, redness noted; States he dropped water bubbler on area 2 weeks ago, denies pain. Area displayed to Dr Schroeder, wound consult to be ordered. Requested freelance interpreter/translator for admission process. Meds reconciled by ED, admission orders received from Dr Schroeder. Signed CV after meeting with Dr Schroeder. Precipitating events to admission: Self presented to [facility] ED with due to worsening depression, SI, substance use, attempt to hang self with a rope he found in back yard. stopped attempt to hang self. Recent stressors within past month: Loss of job, increase in substance use. Tox screen: positive Opiates, Methadone, Fentanyl, Cocaine, Marijuana; pt acknowledges use of all with last use 11/19/24. On Methadone maintenance program and received dose of 62 mg today at 1044. Denies s/sx withdrawal to this senior underwriter, denies cravings at present time. Currently denies SI/HI, AH/VH. Alert and oriented x4. Reports poor appetite, losing 13 lbs recently, denies issues with sleep. Rates depression #4-5, anxiety #6-7 on scale 1-10(10 worse). Identifies as support.
[2024-11-20] MEDS: Nicotine 21 MG PATCH.TD24 TRANSDERMA (15:08)
[2024-11-20] MEDS: methADONE HCl 20 MG/2 ML ORAL.CONC 5 MG PO (15:09)
[2024-11-20 21:30] VITALS: BP 127/76; PULSE 64; RESP 16; TEMP 37.6; O2SAT 97
[2024-11-21 07:15] VITALS: BP 127/76; PULSE 60; RESP 18; TEMP 36.9; O2SAT 99
[2024-11-21] MEDS: methADONE HCl 20 MG/2 ML ORAL.CONC 67 MG PO (08:15)
[2024-11-21 09:10] LABS: Hemoglobin A1C 162.5283 umol/L; Total Hemoglobin (HGBA1C) 4229.3130 umol/L
[2024-11-21] MEDS: Nicotine 21 MG PATCH.TD24 TRANSDERMA (09:11)
[2024-11-21 09:16] LABS: Cholesterol 192 mg/dL (<200); HDL Cholesterol 39 mg/dL (>40); Triglycerides 120 mg/dL (<150)
[2024-11-21 09:59] LABS: Free T4 (Free Thyroxine) 0.98 ng/dL (0.71-1.85); Thyroid Stimulating Hormone 1.07 uIU/mL (0.32-4.0)
--- NOTE | 2024-11-21 10:00 | P.PNPSI_ITS ---
Subjective Subjective Date of Service: 11/21/24 Reason For Visit: depression SI Subjective Notes: Conditional Voluntary Interim History: Patient was seen and discussed in rounds today. Records and plans were reviewed. He is settling into the unit. Continues to endorse depression. No SI. No AVH. Eating and sleeping adequately. No changes were made today. Review of Systems Review of Systems Yes all other systems are reviewed and are negative Mental Status Exam Mental Status Exam Narrative: In today's visit he is alert, oriented and pleasant. Normal speech. Moderate eye contact. Affect is appropriate and constricted. No acute signs of psychosis. No AVH. Denies SI. Cognitively is grossly intact. Judgment is intact Diagnostics Vital Signs (24Hr): Vital Signs - 24 hr 11/20/24 12:45 11/20/24 21:30 11/21/24 07:15 Temperature 98.0 F 99.6 F 98.5 F Pulse Rate 92 64 60 Respiratory Rate 16 16 18 Blood Pressure 136/93 H 127/76 127/76 Pulse Oximetry 97 97 99 Oxygen Delivery Method Room Air Room Air Room Air BMI result Body Mass Index 26.2 Labs 11/19/24 21:14 11/19/24 21:14 Labs: Laboratory Results - last 48 hr 11/19/24 11/19/24 11/20/24 21:14 21:49 06:56 WBC 11.8 H RBC 5.04 Hgb 15.1 Hct 45.0 MCV 89.3 MCH 30.0 MCHC 33.6 RDW 13.5 Plt Count 308 D MPV 8.8 L Immature Gran % (Auto) 0.4 Neut % (Auto) 69.7 Lymph % (Auto) 19.9 L [place] % (Auto) 6.5 Eos % (Auto) 3.1 Baso % (Auto) 0.4 Lymph # (Auto) 2.4 [place] # (Auto) 0.8 Eos # (Auto) 0.4 Baso # (Auto) 0.1 Abs Immat Gran (auto) 0.05 H Absolute Neuts (auto) 8.2 Absolute Nucleated RBC 0.000 Nucleated RBC % (auto) 0.0 Sodium 140 Potassium 3.7 Chloride 104 Carbon Dioxide 24 Anion Gap 16 BUN 14 Creatinine 1.17 Estim Creat Clear Calc 90.2 Estimated GFR > 60 Random Glucose 83 Estimat Average Glucose Hemoglobin A1c % Calcium 9.1 Total Bilirubin 0.3 AST 24 ALT 23 Alkaline Phosphatase 81 Total Protein 8.5 H Albumin 4.7 Triglycerides Cholesterol LDL Cholesterol, Calc HDL Cholesterol TSH Free T4 Urine Color Dark Yellow Urine Appearance Clear Urine pH 5.5 Ur Specific [place] >= 1.030 H Urine Protein Trace Urine Glucose (UA) Negative Urine Ketones Trace Urine Blood Negative Urine Nitrite Negative Ur Leukocyte Esterase Negative Salicylates < 5.0 L Urine Opiates Screen POSITIVE H Ur Buprenorphine Scrn Not Detected Ur Oxycodone Screen Not Detected Urine Methadone Screen Positive H Urine Fentanyl Screen POSITIVE H Acetaminophen < 3 Ur Barbiturates Screen Not Detected Ur Phencyclidine Scrn Not Detected Ur Amphetamines Screen Not Detected U Benzodiazepines Scrn Not Detected Urine Cocaine Screen POSITIVE H U Marijuana (THC) Screen POSITIVE H Ethyl Alcohol < 10 Influenza Type A (PCR) NEGATIVE Influenza Type B (PCR) NEGATIVE RSV RNA Qual (PCR) NEGATIVE SARS-CoV-2 RNA (RT-PCR) NEGATIVE 11/21/24 08:01 WBC RBC Hgb Hct MCV MCH MCHC RDW Plt Count MPV Immature Gran % (Auto) Neut % (Auto) Lymph % (Auto) [place] % (Auto) Eos % (Auto) Baso % (Auto) Lymph # (Auto) [place] # (Auto) Eos # (Auto) Baso # (Auto) Abs Immat Gran (auto) Absolute Neuts (auto) Absolute Nucleated RBC Nucleated RBC % (auto) Sodium Potassium Chloride Carbon Dioxide Anion Gap BUN Creatinine Estim Creat Clear Calc Estimated GFR Random Glucose Estimat Average Glucose 117 Hemoglobin A1c % 5.7 Calcium Total Bilirubin AST ALT Alkaline Phosphatase Total Protein Albumin Triglycerides 120 Cholesterol 192 LDL Cholesterol, Calc 129 H HDL Cholesterol 39 L TSH 1.07 Free T4 0.98 Urine Color Urine Appearance Urine pH Ur Specific [place] Urine Protein Urine Glucose (UA) Urine Ketones Urine Blood Urine Nitrite Ur Leukocyte Esterase Salicylates Urine Opiates Screen Ur Buprenorphine Scrn Ur Oxycodone Screen Urine Methadone Screen Urine Fentanyl Screen Acetaminophen Ur Barbiturates Screen Ur Phencyclidine Scrn Ur Amphetamines Screen U Benzodiazepines Scrn Urine Cocaine Screen U Marijuana (THC) Screen Ethyl Alcohol Influenza Type A (PCR) Influenza Type B (PCR) RSV RNA Qual (PCR) SARS-CoV-2 RNA (RT-PCR) Medications Medications Current Medications Acetaminophen (Acetaminophen 325 Mg Tablet) 650 mg PO Q6H PRN PRN Reason: Headache/Pain, Scale 1-10 Al Hydroxide/Mg Hydroxide (Magnesium Hydrox/Alum Hydrox 30 Ml Oral.Susp) 30 ml PO Q6H PRN PRN Reason: Heartburn/Nausea Clonidine HCl (Clonidine Hcl 0.1 Mg Tablet) 0.1 mg PO Q4H PRN; Protocol PRN Reason: Sx of opioid withdrawal Dicyclomine HCl (Dicyclomine Hcl 10 Mg Capsule) 10 mg PO QIDACHS PRN PRN Reason: cramps Hydroxyzine HCl (Hydroxyzine Hcl 25 Mg Tablet) 25 mg PO Q6H PRN PRN Reason: mild anxiety Ibuprofen (Ibuprofen 600 Mg Tablet) 600 mg PO Q6H PRN PRN Reason: aches Loperamide HCl (Loperamide Hcl 2 Mg Capsule) 2 mg PO Q6H PRN PRN Reason: Diarrhea Lorazepam (Lorazepam 1 Mg Tablet) 1 mg PO Q4H PRN PRN Reason: strong anxiety Magnesium Hydroxide (Milk Of Magnesia 30 Ml Oral.Susp) 30 ml PO DAILY PRN PRN Reason: Constipation Methadone HCl (Methadone Hcl 20 Mg/2 Ml Oral.Conc) 67 mg PO DAILY [facility] Last Admin: 11/21/24 08:15 Dose: 67 mg Nicotine (Nicotine 21 Mg Patch.Td24) 21 mg TRANSDERMA DAILY [facility] Last Admin: 11/21/24 09:11 Dose: 21 mg Nicotine Polacrilex (Nicotine Polacrilex 2 Mg Gum) 4 mg BUCCAL Q2H PRN PRN Reason: Nicotine Cravings Sertraline HCl (Sertraline Hcl 50 Mg Tablet) 50 mg PO DAILY [facility] Last Admin: 11/21/24 09:12 Dose: 50 mg Trazodone HCl (Trazodone Hcl 50 Mg Tablet) 50 mg PO BEDTIME MRX1 PRN PRN Reason: Insomnia Allergies Allergies Allergy/AdvReac Type Severity Reaction Status Date / Time No Known Allergies (No Known Allergy Verified 11/19/24 20:12 Allergies*) Assessment & Plan Assessment & Plan (1) Depressive disorder: Status: Acute Code(s): F32.A - Depression, unspecified (2) Cocaine use disorder: Status: Acute Code(s): F14.10 - Cocaine abuse, uncomplicated (3) Opioid use disorder: Status: Acute Code(s): F11.90 - Opioid use, unspecified, uncomplicated (4) Tobacco use disorder: Status: Acute Code(s): F17.200 - Nicotine dependence, unspecified, uncomplicated (5) Cannabis use disorder: Status: Acute Code(s): F12.90 - Cannabis use, unspecified, uncomplicated Plan start zoloft 50 mg daily for depression and anxiety. increase methadone to 67 mg daily for cravings/opioid use. wound consult for right great toe crush injury. supportive care for cocaine, cannabis, opioid withdrawal Sx. NRT for tobacco use disorder. T/C medication for cocaine use disorder. declining rehab for now due to bills. interested in therapy and medications referral at discharge. addiction consult for community resources and reading recovery teacher. 11/21: Continue current regimen and plans Reason for continued inpatient stay Substantial Risk for: med/psych decompensation Time Spent With Patient Time: Total time managing care of this patient today ____ minutes.
[2024-11-21 10:11] LABS: Folate 11.4 ng/mL (> or = 4.0); Vitamin B12 382 pg/mL (200-900)
--- NOTE | 2024-11-21 15:41 | MHC.RECOVRN ---
Met with pt. in common area with data visualization developer Penelope following request received for Outpaient resources and refinery operator vapor recovery unit. Pt denied any recent return to use. He denied any need for resources outside of recovery coaching. T/W obtained JOHN and sent referral for RC to Allison. Message sent to NAMRATA re: the referral. Pt denies any further needs at this time.
[2024-11-21 21:02] VITALS: BP 132/75; PULSE 59; RESP 14; TEMP 37.6; O2SAT 96
[2024-11-22 07:10] VITALS: BP 110/74; PULSE 88; RESP 16; TEMP 36.8; O2SAT 97
[2024-11-22] MEDS: methADONE HCl 20 MG/2 ML ORAL.CONC 67 MG PO (08:02)
--- NOTE | 2024-11-22 08:54 | HO.PSYCHPN ---
Subjective Subjective Date of Service: 11/22/24 Reason For Visit: depression SI Subjective Notes: Conditional Voluntary Interim History: Patient was seen and discussed in rounds today. Records and plans were reviewed. He is isolative, quiet. Had a good visit with his . He is medication compliant. Eating and sleeping adequately. Slept 9 hours. No SI. No changes were made today Review of Systems Review of Systems Yes all other systems are reviewed and are negative Mental Status Exam Mental Status Exam Narrative: In today's visit he is alert, oriented and pleasant. Normal speech. Moderate eye contact. Affect is appropriate and less constricted. No acute signs of psychosis. No AVH. Denies SI. Cognitively is grossly intact. Judgment is intact Diagnostics Vital Signs (24Hr): Vital Signs - 24 hr 11/21/24 21:02 11/22/24 07:10 Temperature 99.6 F 98.2 F Pulse Rate 59 88 Respiratory Rate 14 16 Blood Pressure 132/75 110/74 Pulse Oximetry 96 97 Oxygen Delivery Method Room Air Room Air BMI result Body Mass Index 26.2 Labs 11/19/24 21:14 11/19/24 21:14 Labs: Laboratory Results - last 48 hr 11/21/24 08:01 Estimat Average Glucose 117 Hemoglobin A1c % 5.7 Triglycerides 120 Cholesterol 192 LDL Cholesterol, Calc 129 H HDL Cholesterol 39 L Vitamin B12 382 Folate 11.4 TSH 1.07 Free T4 0.98 Medications Medications Current Medications Acetaminophen (Acetaminophen 325 Mg Tablet) 650 mg PO Q6H PRN PRN Reason: Headache/Pain, Scale 1-10 Al Hydroxide/Mg Hydroxide (Magnesium Hydrox/Alum Hydrox 30 Ml Oral.Susp) 30 ml PO Q6H PRN PRN Reason: Heartburn/Nausea Clonidine HCl (Clonidine Hcl 0.1 Mg Tablet) 0.1 mg PO Q4H PRN; Protocol PRN Reason: Sx of opioid withdrawal Dicyclomine HCl (Dicyclomine Hcl 10 Mg Capsule) 10 mg PO QIDACHS PRN PRN Reason: cramps Hydroxyzine HCl (Hydroxyzine Hcl 25 Mg Tablet) 25 mg PO Q6H PRN PRN Reason: mild anxiety Ibuprofen (Ibuprofen 600 Mg Tablet) 600 mg PO Q6H PRN PRN Reason: aches Loperamide HCl (Loperamide Hcl 2 Mg Capsule) 2 mg PO Q6H PRN PRN Reason: Diarrhea Lorazepam (Lorazepam 1 Mg Tablet) 1 mg PO Q4H PRN PRN Reason: strong anxiety Magnesium Hydroxide (Milk Of Magnesia 30 Ml Oral.Susp) 30 ml PO DAILY PRN PRN Reason: Constipation Methadone HCl (Methadone Hcl 20 Mg/2 Ml Oral.Conc) 67 mg PO DAILY [facility] Last Admin: 11/22/24 08:02 Dose: 67 mg Nicotine (Nicotine 21 Mg Patch.Td24) 21 mg TRANSDERMA DAILY [facility] Last Admin: 11/22/24 08:28 Dose: Not Given Nicotine Polacrilex (Nicotine Polacrilex 2 Mg Gum) 4 mg BUCCAL Q2H PRN PRN Reason: Nicotine Cravings Sertraline HCl (Sertraline Hcl 50 Mg Tablet) 50 mg PO DAILY [facility] Last Admin: 11/22/24 08:25 Dose: 50 mg Trazodone HCl (Trazodone Hcl 50 Mg Tablet) 50 mg PO BEDTIME MRX1 PRN PRN Reason: Insomnia Allergies Allergies Allergy/AdvReac Type Severity Reaction Status Date / Time No Known Allergies (No Known Allergy Verified 11/19/24 20:12 Allergies*) Assessment & Plan Assessment & Plan (1) Depressive disorder: Status: Acute Code(s): F32.A - Depression, unspecified (2) Cocaine use disorder: Status: Acute Code(s): F14.10 - Cocaine abuse, uncomplicated (3) Opioid use disorder: Status: Acute Code(s): F11.90 - Opioid use, unspecified, uncomplicated (4) Tobacco use disorder: Status: Acute Code(s): F17.200 - Nicotine dependence, unspecified, uncomplicated (5) Cannabis use disorder: Status: Acute Code(s): F12.90 - Cannabis use, unspecified, uncomplicated Plan start zoloft 50 mg daily for depression and anxiety. increase methadone to 67 mg daily for cravings/opioid use. wound consult for right great toe crush injury. supportive care for cocaine, cannabis, opioid withdrawal Sx. NRT for tobacco use disorder. T/C medication for cocaine use disorder. declining rehab for now due to bills. interested in therapy and medications referral at discharge. addiction consult for community resources and swim coach. 11/21: Continue current regimen and plans 11/22: Continue current plans and regimen Reason for continued inpatient stay Substantial Risk for: med/psych decompensation Time Spent With Patient Time: Total time managing care of this patient today ____ minutes.
[2024-11-22 20:00] VITALS: BP 124/76; PULSE 90; RESP 16; TEMP 37; O2SAT 98
[2024-11-23 07:30] VITALS: BP 108/65; PULSE 61; RESP 18; TEMP 36.9; O2SAT 99
[2024-11-23] MEDS: methADONE HCl 20 MG/2 ML ORAL.CONC 67 MG PO (08:03)
--- NOTE | 2024-11-23 12:24 | HO.PSYCHPN ---
Subjective Subjective Date of Service: 11/23/24 Reason For Visit: depression SI Interim History: feeling improved. declines medications for cocaine use disorder. not seen by wound care yet. sleeping well. not yet ready for discharge, however. remains interested in therapy and psych meds outpt. per staff, taking meds, no issues. wound consult pending. slept 9 hours. Mental Status Exam Mental Status Exam Narrative: adequately dressed and groomed in hospital garb. cooperative. no PMA/PMR. speech nml rate, decr amount, nml loudness, nml latency. thoughts linear and logical, no delusions or paranoia. affect more flexible, normo-intense, non-labile. mood better. no SI/SIBI/HI/AVH expressed. Diagnostics Vital Signs (24Hr): Vital Signs - 24 hr 11/22/24 20:00 11/23/24 07:30 Temperature 98.6 F 98.5 F Pulse Rate 90 61 Respiratory Rate 16 18 Blood Pressure 124/76 108/65 Pulse Oximetry 98 99 Oxygen Delivery Method Room Air Room Air BMI result Body Mass Index 26.2 Labs 11/19/24 21:14 11/19/24 21:14 Medications Medications Current Medications Acetaminophen (Acetaminophen 325 Mg Tablet) 650 mg PO Q6H PRN PRN Reason: Headache/Pain, Scale 1-10 Al Hydroxide/Mg Hydroxide (Magnesium Hydrox/Alum Hydrox 30 Ml Oral.Susp) 30 ml PO Q6H PRN PRN Reason: Heartburn/Nausea Clonidine HCl (Clonidine Hcl 0.1 Mg Tablet) 0.1 mg PO Q4H PRN; Protocol PRN Reason: Sx of opioid withdrawal Dicyclomine HCl (Dicyclomine Hcl 10 Mg Capsule) 10 mg PO QIDACHS PRN PRN Reason: cramps Hydroxyzine HCl (Hydroxyzine Hcl 25 Mg Tablet) 25 mg PO Q6H PRN PRN Reason: mild anxiety Ibuprofen (Ibuprofen 600 Mg Tablet) 600 mg PO Q6H PRN PRN Reason: aches Loperamide HCl (Loperamide Hcl 2 Mg Capsule) 2 mg PO Q6H PRN PRN Reason: Diarrhea Lorazepam (Lorazepam 1 Mg Tablet) 1 mg PO Q4H PRN PRN Reason: strong anxiety Magnesium Hydroxide (Milk Of Magnesia 30 Ml Oral.Susp) 30 ml PO DAILY PRN PRN Reason: Constipation Methadone HCl (Methadone Hcl 20 Mg/2 Ml Oral.Conc) 67 mg PO DAILY [facility] Last Admin: 11/23/24 08:03 Dose: 67 mg Nicotine (Nicotine 21 Mg Patch.Td24) 21 mg TRANSDERMA DAILY [facility] Last Admin: 11/23/24 08:15 Dose: Not Given Nicotine Polacrilex (Nicotine Polacrilex 2 Mg Gum) 4 mg BUCCAL Q2H PRN PRN Reason: Nicotine Cravings Sertraline HCl (Sertraline Hcl 50 Mg Tablet) 50 mg PO DAILY [facility] Last Admin: 11/23/24 08:14 Dose: 50 mg Trazodone HCl (Trazodone Hcl 50 Mg Tablet) 50 mg PO BEDTIME MRX1 PRN PRN Reason: Insomnia Allergies Allergies Allergy/AdvReac Type Severity Reaction Status Date / Time No Known Allergies (No Known Allergy Verified 11/19/24 20:12 Allergies*) Assessment & Plan Assessment & Plan (1) Depressive disorder: Status: Acute Code(s): F32.A - Depression, unspecified (2) Cocaine use disorder: Status: Acute Code(s): F14.10 - Cocaine abuse, uncomplicated (3) Opioid use disorder: Status: Acute Code(s): F11.90 - Opioid use, unspecified, uncomplicated (4) Tobacco use disorder: Status: Acute Code(s): F17.200 - Nicotine dependence, unspecified, uncomplicated (5) Cannabis use disorder: Status: Acute Code(s): F12.90 - Cannabis use, unspecified, uncomplicated Plan 11/20: start zoloft 50 mg daily for depression and anxiety. increase methadone to 67 mg daily for cravings/opioid use. wound consult for right great toe crush injury. supportive care for cocaine, cannabis, opioid withdrawal Sx. NRT for tobacco use disorder. T/C medication for cocaine use disorder. declining rehab for now due to bills. interested in therapy and medications referral at discharge. addiction consult for community resources and assistant women's rowing coach. 11/21: Continue current regimen and plans 11/22: Continue current plans and regimen 11/23: awaiting wound care consult. saw addiction consult, referral for assistant women's rowing coach made. feeling good at 67 mg methadone, doesn't want other services or referrals. declines to start medication for cocaine cravings. planning to discharge soon, but not immediately. Reason for continued inpatient stay Substantial Risk for: inability to function and rapid decompensation Time Spent With Patient Time: Total time managing care of this patient today __25__ minutes.
[2024-11-23 20:00] VITALS: BP 128/72; PULSE 59; RESP 18; TEMP 36.9; O2SAT 98
[2024-11-24 07:37] VITALS: BP 126/62; PULSE 60; RESP 20; TEMP 36.9; O2SAT 99
[2024-11-24] MEDS: methADONE HCl 20 MG/2 ML ORAL.CONC 67 MG PO (07:55)
--- NOTE | 2024-11-24 17:05 | P.PNPSI_ITS ---
Subjective Subjective Date of Service: 11/24/24 Reason For Visit: depression SI Subjective Notes: Conditional Voluntary Healthcare Proxy: No Guardianship: No Medical Problems Affecting Mental Status: No Interim History: Medical record and nursing notes reviewed; case discussed during rounds with team/nursing staff, and met with patient for supportive therapy/psychoeducation, as well as medication management. Patient slept for 8 hours, was medication compliant, denies side effects. He self-reported that he did not sleep well last night possibility from napping too much during the day. Appetite good. He reports mood is good denies anxiety and depression. Denies safety concerns Reports that he used heroin in additional to methadone. Denies craving, he does not want to treatment program, but agree with the addictions recovery specialist referral. Discussed with patient potential for increasing sertraline for depression, however he is not open to get it change at this time. I also discontinued the Ativan as needed, he has not use it and not necessary. Medication Compliance: Yes (Except nicotine patch) Side effects from medications: Yes Attending Groups: Intermittent Review of Systems Acute medical concerns: No Medical Review of Systems: unchanged Review of Systems Review of Systems Constitutional: Denies fatigue and Denies fever(s) Cardiovascular: Denies chest pain and Denies dyspnea Respiratory: Denies dyspnea Gastrointestinal: Denies abdominal pain Psychiatric: denies suicidal ideation Endocrine: Denies fatigue scalp treatment specialist saw the patient today. Recommend x-ray to the right great toe. Mental Status Exam Mental Status Exam Narrative: adequately dressed and groomed in casual garb. cooperative. no PMA/PMR. speech nml rate, decr amount, nml loudness, nml latency. thoughts linear and logical, no delusions or paranoia. affect more flexible, normo-intense, non- labile. mood good. no SI/SIBI/HI/AVH expressed. Diagnostics Vital Signs (24Hr): Vital Signs - 24 hr 11/23/24 20:00 11/24/24 07:37 Temperature 98.5 F 98.4 F Pulse Rate 59 60 Respiratory Rate 18 20 Blood Pressure 128/72 126/62 Pulse Oximetry 98 99 Oxygen Delivery Method Room Air Room Air BMI result Body Mass Index 26.2 Labs 11/19/24 21:14 11/19/24 21:14 Medications Medications Current Medications Acetaminophen (Acetaminophen 325 Mg Tablet) 650 mg PO Q6H PRN PRN Reason: Headache/Pain, Scale 1-10 Al Hydroxide/Mg Hydroxide (Magnesium Hydrox/Alum Hydrox 30 Ml Oral.Susp) 30 ml PO Q6H PRN PRN Reason: Heartburn/Nausea Clonidine HCl (Clonidine Hcl 0.1 Mg Tablet) 0.1 mg PO Q4H PRN; Protocol PRN Reason: Sx of opioid withdrawal Dicyclomine HCl (Dicyclomine Hcl 10 Mg Capsule) 10 mg PO QIDACHS PRN PRN Reason: cramps Hydroxyzine HCl (Hydroxyzine Hcl 25 Mg Tablet) 25 mg PO Q6H PRN PRN Reason: mild anxiety Ibuprofen (Ibuprofen 600 Mg Tablet) 600 mg PO Q6H PRN PRN Reason: aches Loperamide HCl (Loperamide Hcl 2 Mg Capsule) 2 mg PO Q6H PRN PRN Reason: Diarrhea Magnesium Hydroxide (Milk Of Magnesia 30 Ml Oral.Susp) 30 ml PO DAILY PRN PRN Reason: Constipation Methadone HCl (Methadone Hcl 20 Mg/2 Ml Oral.Conc) 67 mg PO DAILY [facility] Last Admin: 11/24/24 07:55 Dose: 67 mg Nicotine (Nicotine 21 Mg Patch.Td24) 21 mg TRANSDERMA DAILY PRN PRN Reason: Nicotine craving Nicotine Polacrilex (Nicotine Polacrilex 2 Mg Gum) 4 mg BUCCAL Q2H PRN PRN Reason: Nicotine Cravings Sertraline HCl (Sertraline Hcl 50 Mg Tablet) 50 mg PO DAILY [facility] Last Admin: 11/24/24 07:57 Dose: 50 mg Trazodone HCl (Trazodone Hcl 50 Mg Tablet) 50 mg PO BEDTIME MRX1 PRN PRN Reason: Insomnia Allergies Allergies Allergy/AdvReac Type Severity Reaction Status Date / Time No Known Allergies (No Known Allergy Verified 11/19/24 20:12 Allergies*) Assessment & Plan Assessment & Plan (1) Depressive disorder: Status: Acute Code(s): F32.A - Depression, unspecified (2) Cocaine use disorder: Status: Acute Code(s): F14.10 - Cocaine abuse, uncomplicated (3) Opioid use disorder: Status: Acute Code(s): F11.90 - Opioid use, unspecified, uncomplicated (4) Tobacco use disorder: Status: Acute Code(s): F17.200 - Nicotine dependence, unspecified, uncomplicated (5) Cannabis use disorder: Status: Acute Code(s): F12.90 - Cannabis use, unspecified, uncomplicated Plan 11/20: start zoloft 50 mg daily for depression and anxiety. increase methadone to 67 mg daily for cravings/opioid use. wound consult for right great toe crush injury. supportive care for cocaine, cannabis, opioid withdrawal Sx. NRT for tobacco use disorder. T/C medication for cocaine use disorder. declining rehab for now due to bills. interested in therapy and medications referral at discharge. addiction consult for community resources and addictions recovery specialist. 11/21: Continue current regimen and plans 11/22: Continue current plans and regimen 11/23: awaiting wound care consult. saw addiction consult, referral for addictions recovery specialist made. feeling good at 67 mg methadone, doesn't want other services or referrals. declines to start medication for cocaine cravings. planning to discharge soon, but not immediately. 11/23/24: Patient slept for 8 hours, was medication compliant, denies side effects. He self-reported that he did not sleep well last night possibility from napping too much during the day. Appetite good. He reports mood is good denies anxiety and depression. Denies safety concerns Reports that he used heroin in additional to methadone. Denies craving, he does not want to treatment program, but agree with the addictions recovery specialist referral. Discussed with patient potential for increasing sertraline for depression, however he is not open to get it change at this time. I also discontinued the Ativan as needed, he has not use it and not necessary. Continue with methadone 67 mg for MAT. Denies craving for heroin. Do not want to go to treatment program, but agree with addictions recovery specialist referral. Pain on right great toe 12/23: Big bottle of water 25 L drop on his feet 2 weeks ago. Seen by wounds specialist. Recommend x-ray. X-rays order: Pending results Patient educated on: diagnosis, medication risk/benefits, substance abuse and therapeutic strategies Informed Consent: further education needed Reason for continued inpatient stay Substantial Risk for: med/psych decompensation Time Spent With Patient Time: Total time managing care of this patient today ____ minutes.
--- NOTE | 2024-11-24 17:08 | HO.WOUND ---
Wound Consult: Initial 39yr old?male admitted to [facility] on 11/20/24- See progress notes and H&P for detailed history.? Wound consult placed for Right Great Toe.? Patient agreeable to assessment and photo documentation.? Patient reports he dropped a full water jug to a bubbler on his foot approximately two weeks ago. He continued with significant pain and tenderness to touch. There is some hyperpigmentation noted to the periwound and some swelling. The wound bed is dried and scabbed however there was no dressing in place at the time of my consult. The patient appears to have limited range of motion to the great toe due to pain - given it is two weeks out and mild swelling remains along with limited movement would recommend imaging to assess for fracture. Provider to assess for need. Topical recommendation at this time will be for moist wound healing with xeroform and dry gauze daily. Will assess later in the week to determine if patient wound beds needs durafiber AG dressing. Right Great Toe Etiology: Laceration ??Present on Admission Measurements: 1cm x 0.2cm x 0.2cm Wound Bed: dried scabbed Drainage / Odor: Crusted to edges Edges: ? unattached Kaylie wound: hyperpigmentaiton noted, some swelling, and dry desquamation noted - ? No Induration, Fluctuance or Warmth noted, +PP noted, Limited Range of motion to great toe Pain: pain reported Goals of Treatment: ? moist wound healing with xeroform Recommendations: When applicable maintain blood glucose levels per Providers order. Right Great Toe - Cleanse with Ns, moist gauze, pat dry. Apply skin prep to periwound, cover wound bed with xeroform and dry gauze, change daily. Re-consult wound care Nurse for wound deterioration or wound changes.
[2024-11-24 20:00] VITALS: BP 130/60; PULSE 66; RESP 16; TEMP 37.1; O2SAT 100
[2024-11-25 07:37] VITALS: BP 132/68; PULSE 63; RESP 18; TEMP 36.8; O2SAT 98
[2024-11-25] MEDS: methADONE HCl 20 MG/2 ML ORAL.CONC 67 MG PO (07:56)
--- NOTE | 2024-11-25 12:19 | HO.PSYCHPN ---
Subjective Subjective Date of Service: 11/25/24 Reason For Visit: depression SI Subjective Notes: Conditional Voluntary Healthcare Proxy: No Guardianship: No Medical Problems Affecting Mental Status: No Interim History: Medical record and nursing notes reviewed; case discussed during rounds with team/nursing staff, and met with patient for supportive therapy/psychoeducation, as well as medication management. Patient slept for 8 hours was medication compliant. Denies side effects. Do not want medication change. Denies safety. Denied depression or anxiety. Denies safety concerns. Medication and helpful. Patient's visited him yesterday, not happy that patient was on methadone. Her nursing and pther discipline, does not want him on any medications. Patient reported that his does not want him to be on MTD. Explained to patient the pro and cons of taking MTD to prevent him from using street drugs. Patient agrees with the plan. Family needs more education Medication Compliance: Yes Side effects from medications: No Attending Groups: Intermittent Review of Systems Acute medical concerns: No Medical Review of Systems: unchanged Review of Systems Review of Systems Constitutional: Denies fatigue and Denies fever(s) Cardiovascular: Denies chest pain and Denies dyspnea Respiratory: Denies dyspnea Gastrointestinal: Denies abdominal pain Psychiatric: denies suicidal ideation Endocrine: Denies fatigue Xray negative on 11/24 on Right great toe Yes all other systems are reviewed and are negative Mental Status Exam Mental Status Exam Narrative: adequately dressed and groomed in casual garb. cooperative. no PMA/PMR. speech nml rate, decr amount, nml loudness, nml latency. thoughts linear and logical, no delusions or paranoia. affect more happy during conversation, less depressed,, normo-intense, non-labile. mood good. no SI/SIBI/HI/AVH expressed. Diagnostics Vital Signs (24Hr): Vital Signs - 24 hr 11/24/24 20:00 11/25/24 07:37 Temperature 98.7 F 98.2 F Pulse Rate 66 63 Respiratory Rate 16 18 Blood Pressure 130/60 132/68 Pulse Oximetry 100 98 Oxygen Delivery Method Room Air Room Air BMI result Body Mass Index 26.2 Labs 11/19/24 21:14 11/19/24 21:14 Medications Medications Current Medications Acetaminophen (Acetaminophen 325 Mg Tablet) 650 mg PO Q6H PRN PRN Reason: Headache/Pain, Scale 1-10 Al Hydroxide/Mg Hydroxide (Magnesium Hydrox/Alum Hydrox 30 Ml Oral.Susp) 30 ml PO Q6H PRN PRN Reason: Heartburn/Nausea Clonidine HCl (Clonidine Hcl 0.1 Mg Tablet) 0.1 mg PO Q4H PRN; Protocol PRN Reason: Sx of opioid withdrawal Dicyclomine HCl (Dicyclomine Hcl 10 Mg Capsule) 10 mg PO QIDACHS PRN PRN Reason: cramps Hydroxyzine HCl (Hydroxyzine Hcl 25 Mg Tablet) 25 mg PO Q6H PRN PRN Reason: mild anxiety Ibuprofen (Ibuprofen 600 Mg Tablet) 600 mg PO Q6H PRN PRN Reason: aches Loperamide HCl (Loperamide Hcl 2 Mg Capsule) 2 mg PO Q6H PRN PRN Reason: Diarrhea Magnesium Hydroxide (Milk Of Magnesia 30 Ml Oral.Susp) 30 ml PO DAILY PRN PRN Reason: Constipation Methadone HCl (Methadone Hcl 20 Mg/2 Ml Oral.Conc) 67 mg PO DAILY [facility] Last Admin: 11/25/24 07:56 Dose: 67 mg Nicotine (Nicotine 21 Mg Patch.Td24) 21 mg TRANSDERMA DAILY PRN PRN Reason: Nicotine craving Nicotine Polacrilex (Nicotine Polacrilex 2 Mg Gum) 4 mg BUCCAL Q2H PRN PRN Reason: Nicotine Cravings Sertraline HCl (Sertraline Hcl 50 Mg Tablet) 50 mg PO DAILY [facility] Last Admin: 11/25/24 07:57 Dose: 50 mg Trazodone HCl (Trazodone Hcl 50 Mg Tablet) 50 mg PO BEDTIME MRX1 PRN PRN Reason: Insomnia Allergies Allergies Allergy/AdvReac Type Severity Reaction Status Date / Time No Known Allergies (No Known Allergy Verified 11/19/24 20:12 Allergies*) Assessment & Plan Assessment & Plan (1) Depressive disorder: Status: Acute Code(s): F32.A - Depression, unspecified (2) Cocaine use disorder: Status: Acute Code(s): F14.10 - Cocaine abuse, uncomplicated (3) Opioid use disorder: Status: Acute Code(s): F11.90 - Opioid use, unspecified, uncomplicated (4) Tobacco use disorder: Status: Acute Code(s): F17.200 - Nicotine dependence, unspecified, uncomplicated (5) Cannabis use disorder: Status: Acute Code(s): F12.90 - Cannabis use, unspecified, uncomplicated Plan To his work 11/20: start zoloft 50 mg daily for depression and anxiety. increase methadone to 67 mg daily for cravings/opioid use. wound consult for right great toe crush injury. supportive care for cocaine, cannabis, opioid withdrawal Sx. NRT for tobacco use disorder. T/C medication for cocaine use disorder. declining rehab for now due to bills. interested in therapy and medications referral at discharge. addiction consult for community resources and reading recovery teacher. 11/21: Continue current regimen and plans 11/22: Continue current plans and regimen 11/23: awaiting wound care consult. saw addiction consult, referral for reading recovery teacher made. feeling good at 67 mg methadone, doesn't want other services or referrals. declines to start medication for cocaine cravings. planning to discharge soon, but not immediately. 11/24/24: Patient slept for 8 hours, was medication compliant, denies side effects. He self-reported that he did not sleep well last night possibility from napping too much during the day. Appetite good. He reports mood is good denies anxiety and depression. Denies safety concerns Reports that he used heroin in additional to methadone. Denies craving, he does not want to treatment program, but agree with the reading recovery teacher referral. Discussed with patient potential for increasing sertraline for depression, however he is not open to get it change at this time. I also discontinued the Ativan as needed, he has not use it and not necessary. Continue with methadone 67 mg for MAT. Denies craving for heroin. Do not want to go to treatment program, but agree with reading recovery teacher referral. Pain on right great toe 12/23: Big bottle of water 25 L drop on his feet 2 weeks ago. Seen by wounds specialist. Recommend x-ray. X-rays order: Pending results 11/25/24: Slept well, no appetite issues, intermittently visible on the unit, no ADLs issues, compliant with medications. Continue to improve in mood, denies safety concerns. He is currently on MTD 67 mg daily. Patient continue taking methadone maintenance at [facility] clinic after discharge. No craving report. We will work on sending medication to preferred pharmacy. Patient will be discharged tomorrow back home. Xray on right great toe was negative. No special instruction for wound care. Just keep area clean. Patient educated on: diagnosis, medication risk/benefits, substance abuse and therapeutic strategies Informed Consent: understands Reason for continued inpatient stay Substantial Risk for: med/psych decompensation Time Spent With Patient Time: Total time managing care of this patient today ____ minutes.
[2024-11-25 20:00] VITALS: BP 124/70; PULSE 63; RESP 18; TEMP 36.9; O2SAT 98
[2024-11-26 07:39] VITALS: BP 138/58; PULSE 75; RESP 18; TEMP 37.1; O2SAT 99
[2024-11-26] MEDS: methADONE HCl 20 MG/2 ML ORAL.CONC 67 MG PO (08:09)
--- NOTE | 2024-11-26 09:08 | PM.PSYDC ---
DS: Providers Provider Date of Service: 11/26/24 Date of admission: 11/20/24 11:42 Date of discharge: 11/26/24 Primary care physician: None Physician Attending physician on admission: Al Schroeder Consults: 11/20/24 14:41 Consult to Wound Care Routine Reason for consultation: crush injury to right great toe 2 weeks ago; discolored, deformed 11/20/24 14:43 Addiction Medicine Provider Routine Consulting Provider: Addiction Covering Reason for consultation: outpt [facility] resources, power and recovery superintendent Attending physician on discharge: Madhavi Mello DS: Diagnosis Discharge Diagnosis (1) Depressive disorder: Status: Acute (2) Cocaine use disorder: Status: Acute (3) Opioid use disorder: Status: Acute (4) Tobacco use disorder: Status: Acute (5) Cannabis use disorder: Status: Acute DS: Medications Discharge Medications Home Medications: Home Medications ?Medication ?Instructions ?Recorded ?Confirmed methadone 10 mg/mL oral 62 mg PO DAILY 11/20/24 11/20/24 concentrate (Methadone Intensol) Previous Rx's ?Medication ?Instructions ?Recorded sertraline 50 mg tablet 50 mg PO DAILY depression #30 tabs 11/26/24 trazodone 50 mg tablet 50 mg PO BEDTIME PRN Insomnia #30 11/26/24 tabs Mental Status Exam Mental Status Exam Narrative: Patient presents well-groomed, casually dressed. Affect is euthymic with full range. Speech is clear and coherent. Thought process is linear and logical. Thought content is appropriate and relevant. Patient denies suicidal or homicidal ideation intent or plan. No overt psychotic symptoms elicited. Insight is good. Judgment is good. Data Data Completed and Pending Completed studies during hospitalization [Text1]: 11/19/24 11/19/24 11/20/24 21:14 21:49 06:56 WBC 11.8 H RBC 5.04 Hgb 15.1 Hct 45.0 MCV 89.3 MCH 30.0 MCHC 33.6 RDW 13.5 Plt Count 308 D MPV 8.8 L Immature Gran % (Auto) 0.4 Neut % (Auto) 69.7 Lymph % (Auto) 19.9 L [place] % (Auto) 6.5 Eos % (Auto) 3.1 Baso % (Auto) 0.4 Lymph # (Auto) 2.4 [place] # (Auto) 0.8 Eos # (Auto) 0.4 Baso # (Auto) 0.1 Abs Immat Gran (auto) 0.05 H Absolute Neuts (auto) 8.2 Absolute Nucleated RBC 0.000 Nucleated RBC % (auto) 0.0 Sodium 140 Potassium 3.7 Chloride 104 Carbon Dioxide 24 Anion Gap 16 BUN 14 Creatinine 1.17 Estim Creat Clear Calc 90.2 Estimated GFR > 60 Random Glucose 83 Estimat Average Glucose Hemoglobin A1c % Calcium 9.1 Total Bilirubin 0.3 AST 24 ALT 23 Alkaline Phosphatase 81 Total Protein 8.5 H Albumin 4.7 Triglycerides Cholesterol LDL Cholesterol, Calc HDL Cholesterol Vitamin B12 Folate TSH Free T4 Urine Color Dark Yellow Urine Appearance Clear Urine pH 5.5 Ur Specific [place] >= 1.030 H Urine Protein Trace Urine Glucose (UA) Negative Urine Ketones Trace Urine Blood Negative Urine Nitrite Negative Ur Leukocyte Esterase Negative Salicylates < 5.0 L Urine Opiates Screen POSITIVE H Ur Buprenorphine Scrn Not Detected Ur Oxycodone Screen Not Detected Urine Methadone Screen Positive H Urine Fentanyl Screen POSITIVE H Acetaminophen < 3 Ur Barbiturates Screen Not Detected Ur Phencyclidine Scrn Not Detected Ur Amphetamines Screen Not Detected U Benzodiazepines Scrn Not Detected Urine Cocaine Screen POSITIVE H U Marijuana (THC) Screen POSITIVE H Ethyl Alcohol < 10 Influenza Type A (PCR) NEGATIVE Influenza Type B (PCR) NEGATIVE RSV RNA Qual (PCR) NEGATIVE SARS-CoV-2 RNA (RT-PCR) NEGATIVE 11/21/24 08:01 WBC RBC Hgb Hct MCV MCH MCHC RDW Plt Count MPV Immature Gran % (Auto) Neut % (Auto) Lymph % (Auto) [place] % (Auto) Eos % (Auto) Baso % (Auto) Lymph # (Auto) [place] # (Auto) Eos # (Auto) Baso # (Auto) Abs Immat Gran (auto) Absolute Neuts (auto) Absolute Nucleated RBC Nucleated RBC % (auto) Sodium Potassium Chloride Carbon Dioxide Anion Gap BUN Creatinine Estim Creat Clear Calc Estimated GFR Random Glucose Estimat Average Glucose 117 Hemoglobin A1c % 5.7 Calcium Total Bilirubin AST ALT Alkaline Phosphatase Total Protein Albumin Triglycerides 120 Cholesterol 192 LDL Cholesterol, Calc 129 H HDL Cholesterol 39 L Vitamin B12 382 Folate 11.4 TSH 1.07 Free T4 0.98 Urine Color Urine Appearance Urine pH Ur Specific [place] Urine Protein Urine Glucose (UA) Urine Ketones Urine Blood Urine Nitrite Ur Leukocyte Esterase Salicylates Urine Opiates Screen Ur Buprenorphine Scrn Ur Oxycodone Screen Urine Methadone Screen Urine Fentanyl Screen Acetaminophen Ur Barbiturates Screen Ur Phencyclidine Scrn Ur Amphetamines Screen U Benzodiazepines Scrn Urine Cocaine Screen U Marijuana (THC) Screen Ethyl Alcohol Influenza Type A (PCR) Influenza Type B (PCR) RSV RNA Qual (PCR) SARS-CoV-2 RNA (RT-PCR) DS: Summary Hospital Course Hospital Course: HPI: Per [facility] pt brought to ED in private car by his with c/o depression and SI with polysubstance use. he reportedly had begun to attempt to hang himself with a rope in the backyard, but his stopped him. he reported psychosocial stressors of recent job loss and resultant relapse to substance misuse. On interview with MD via splunk architect, pt is calm and cooperative. he is constricted in affect, and very straight-forward in his engagement. he is interested in addiction Tx, such as outpt services and power and recovery superintendent, but he states he cannot go to a rehab bcse he needs to pay his bills. he reports his mood was good until about a month ago when he lost his job and relapsed. his mood has been consistently low since. he would like help with depression, amotivation, drug use, and anxiety. he agrees to start zoloft for depression and anxiety, and to increase his methadone dosing slightly from 62 mg daily to 67 mg daily to curb cravings. he is interested in discussing psychopharm for cocaine use disorder. he is interested in therapy and medications referrals upon discharge. agreeable to comfort meds for cocaine and opioid withdrawal Sx. pt shows a wound on his right great toe from dropping a water cooler container on his toe 2 weeks ago, agrees to wound care consult. Past Psychiatric History: hosps: 1 prior at [facility], maybe 5-6 years ago. sa: denies prior attempts. SIB: denies intentional. h/o hitting louis when angry. outpt: when he was a boy in [place] was on zoloft for 1-2 years. reports he had poor behaviors in school, very impulsive. no Tx since. 11/20/24:start zoloft 50 mg daily for depression and anxiety. increase methadone to 67 mg daily for cravings/opioid use. wound consult for right great toe crush injury. supportive care for cocaine, cannabis, opioid withdrawal Sx. NRT for tobacco use disorder. T/C medication for cocaine use disorder. declining rehab for now due to bills. interested in therapy and medications referral at discharge. addiction consult for community resources and power and recovery superintendent. 11/21: Continue current regimen and plans 11/22: Continue current plans and regimen 11/23: awaiting wound care consult. saw addiction consult, referral for power and recovery superintendent made. feeling good at 67 mg methadone, doesn't want other services or referrals. declines to start medication for cocaine cravings. planning to discharge soon, but not immediately. 11/24/24: Patient slept for 8 hours, was medication compliant, denies side effects. He self-reported that he did not sleep well last night possibility from napping too much during the day. Appetite good. He reports mood is good denies anxiety and depression. Denies safety concerns Reports that he used heroin in additional to methadone. Denies craving, he does not want to treatment program, but agree with the power and recovery superintendent referral. Discussed with patient potential for increasing sertraline for depression, however he is not open to get it change at this time. I also discontinued the Ativan as needed, he has not use it and not necessary. Continue with methadone 67 mg for MAT. Denies craving for heroin. Do not want to go to treatment program, but agree with power and recovery superintendent referral. Pain on right great toe 12/23: Big bottle of water 25 L drop on his feet 2 weeks ago. Seen by wounds specialist. Recommend x-ray. X-rays order: Pending results 11/25/24: Slept well, no appetite issues, intermittently visible on the unit, no ADLs issues, compliant with medications. Continue to improve in mood, denies safety concerns. He is currently on MTD 67 mg daily. Patient continue taking methadone maintenance at [facility] clinic after discharge. No craving report. We will work on sending medication to preferred pharmacy. Patient will be discharged tomorrow back home. Xray on right great toe was negative. No special instruction for wound care. Just keep area clean. 11/26/24: medication sent to preferred pharmacy. Last dose letter given to patient by nursing prior to discharge. Patient will continue with MTD dose at 67 at [facility] clinic with [facility]. He has no safety concerns of him going home. No safe concerns during hospitalization. Continue to decline treatment program for substance use but got referral to Electrical Maintenance Engineer. Time spent discussing smoking cessation with patient: 3 to 10 minutes Status at Discharge Cognitive/behavioral status at discharge: CONDITION ON DISCHARGE: CURRENT STATUS IT RELATES TO ADMISSION CRITERIA: Stable, improved. Improvements in depression, anxiety, and suicidal ideation. Improvements in sleep, energy, and appetite. and no hallucination or paranoia/delusional thought. Functional status at discharge: independent ambulation Overall status at discharge: patient is back to baseline Time Spent with Patient Time attestation: Total time managing care of this patient today ____ minutes. Time spent: Greater than 30 minutes Discharge Plan Discharge Anticipated Discharge Date/Time: 11/26/24 11:00 Patient Disposition: Home, Self-Care Discharge Diagnosis: Depressive D/O, cocaine use D/O and Opioid use D/O Referrals: Electrical Maintenance Engineer [Other] - 1 Week Referral Note: *You have been referred to a power and recovery superintendent through the program listed above. They will reach out to your via your cellphone to set up a time to meet. Hal Macias (Therapy) [Other] - 11/27/24 2:30 pm Referral Note: IN OFFICE APPOINTMENT -Please arrive 15 minutes early in order to fill out necessary paperwork. Please bring your insurance card with you. Kane Tuttle (Psychiatry) [Other] - 12/23/24 3:20 pm Referral Note: TELEHEALTH APPOINTMENT -Psychiatric Evaluation Kane Tuttle (Psychiatry) [Other] - 01/21/25 10:00 am Referral Note: TELEHEALTH APPOINTMENT -Medication Management [facility] [Provider Group] - 1 Week Referral Note: 11-24-24 [facility] was added to patients chart. Please call [phone] to schedule your follow up appt within 7-10 days of discharge. No release or PCP on file. Discharge Medications: New sertraline 50 mg Tablet 50 mg PO DAILY Qty: 30 0RF trazodone 50 mg Tablet 50 mg PO BEDTIME PRN (Reason: Insomnia) Qty: 30 0RF Changed methadone [Methadone Intensol] 10 mg/mL Concentrate 67 mg PO DAILY 30 Days Qty: 201 0RF Discharge Orders: Discharge Order (Routine); Ordered 11/26/24 Ordered By: Lien K Mello Diet: Regular diet Activity on Discharge: As tolerated Stand Alone Forms: Patient Portal Discharge page, Community Support Print Language: Setswana Care Plan Goals: Maintain mood and safe behaviors Take medications as prescribed Continue to pursue sobriety Practice coping skills Continue with outpatient providers and reach out to them as needed Health Concerns: Mood stability and behaviors Sobriety Substance abuse treatment and risks discussed with patient who at this time on Methadone but declined help with outpt treatment options including programs; instead patient is choosing to work out sobriety on own Plan of Treatment: Follow up with your PCP, psychiatric provider and other outpatient providers regarding above concerns Take medications as prescribed Assessment: Assessment: Risk assessment at time of discharge: Patient was interviewed prior to discharge and found to be fully oriented and without any SI or HI. Patient has improved insight and judgment and wants to continue treatment. Patient is not in imminent risk of harm to self or others and has a safety plan that includes presenting to the closest ER or calling 911 if feeling unsafe. Patient has been observed closely by nursing and unit staff throughout admission; patient has not engaged in any behaviors that suggest dangerousness to self or others and has demonstrated appropriate behaviors and impulse control Discharge Date/Time: 11/26/24 09:50
== END 2024-11-26 09:50 | disposition home or self-care (01) | DRG 754 ==
LOC: HO.ED 11-20 06:50 → HO.PADLT16 11-20 11:43
PROVIDERS: Registered Nurse Emergency; Admitting Provider Psychiatry & Neurology Psychiatry; Emergency Provider Emergency Medicine; Visit Provider Psychiatry & Neurology Psychiatry
DX: F32.A Depression, unspecified (principal); R45.851 Suicidal ideations; F14.10 Cocaine abuse, uncomplicated; F12.90 Cannabis use, unspecified, uncomplicated; F11.20 Opioid dependence, uncomplicated; F17.210 Nicotine dependence, cigarettes, uncomplicated; Z20.822 Contact with and (suspected) exposure to COVID-19; Z71.6 Tobacco abuse counseling; Z79.899 Other long term (current) drug therapy
CPT/HCPCS: 36415; 73660; 80053; 80061; 80143; 80179; 80307; 81003; 82607; 82746; 83036; 84439; 84443; 85025; 87637; 93005; 99285; S9485

== ENCOUNTER → 2024-11-20 10:23 | Outpatient (BNV) | payer MEDICAID, SELFPAY | PROVIDERS: Admitting Provider Psychiatry & Neurology Psychiatry; Emergency Provider Emergency Medicine; Visit Provider Internal Medicine | DX: Z13.6 Encounter for screening for cardiovascular disorders (principal) | CPT/HCPCS: 93010 ==

== ENCOUNTER 2024-11-20 11:42 | Outpatient (BNV) | payer MEDICAID, SELFPAY | END 2024-11-24 17:35 | PROVIDERS: Admitting Provider Psychiatry & Neurology Psychiatry; Emergency Provider Emergency Medicine; Visit Provider Radiology Diagnostic Radiology | DX: M79.674 Pain in right toe(s) (principal); W20.8XXA Other cause of strike by thrown, projected or falling object, initial encounter | CPT/HCPCS: 73660 ==

== ENCOUNTER → 2024-11-20 11:42 | Outpatient (BNV) | payer OTHER, SELFPAY | PROVIDERS: Admitting Provider Psychiatry & Neurology Psychiatry; Emergency Provider Emergency Medicine; Visit Provider Psychiatry & Neurology Psychiatry | DX: F32.2 Major depressive disorder, single episode, severe without psychotic features (principal); F14.10 Cocaine abuse, uncomplicated; F11.90 Opioid use, unspecified, uncomplicated; F17.200 Nicotine dependence, unspecified, uncomplicated; F12.90 Cannabis use, unspecified, uncomplicated | CPT/HCPCS: 99233 ==